=== PATIENT | female | born 1960 | race Caucasian/White ===

== ENCOUNTER 2021-01-08 12:00 | Outpatient (RCR) | payer BC, SELFPAY ==
--- NOTE | 2020-12-21 15:50 | HP.PTEVAL ---
Patient's Visit Information TISH GALO is a 60 year old F referred to Physical Therapy by Agapito Aburto PA-C with a diagnosis of Muscle strain L gastroc.. Date of Evaluation: 12/21/20 Physical Therapist: Mitch Canas, DONELLT, OCS, CSCS - Visit Plan Frequency: 3x /Week Duration: 4-6 Weeks Plan: 3x/week for 3-6 weeks for: 1. Ensure resting gastroc for infammatory phase. 2. rollout and stretch medial R gastroc. 3. Gradul progressive PRE for gastroc(pt to do rest of body herself or in gym as member). 4. Once full ROM and contraction without pain, phase in running, cutting, tennis specific ex including proper warm up. Ice as needed. 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 Was playing at [employer] sprinted up for ball at net and planted hard on L foot and felt like some one hit her in the calf with a board. Could not keep playing. Stopped and iced but then could not put weight through it. Hobbled to car wtih foot to the side. Ice and REST and better the third day but went to doctor. This occurred 5 days ago on 12/17/20. Comfortable at rest. Only hurts going on toes and stretching FW. Went to [facility] and wants her on crutches and will have MRI as he thinks there might be a partial tear. Sleep is OK. Keeps her from walking properly. Can't play tennis. R knee is sore lately also with overuse. Does some weight lifting and walks hill 3.5 miles per day. Does some 10# weight lifting squats, lunges. Hates stretching. Doesn't warm up alot. Basic ADLS are getting done. - Pain R calf. Pain Intensity (Out of 10): 0 Pain Intensity Range: 0, 5 Comment: 5 with walking up a ramp. - Objective L medial gastroc tender to touch medially moderately. Pt ambulates I slowly, tends to turn L foot out to avoid PF. Walks safe adn I. Steps turn sideways and uses L to ascend and descend onto heel. No functional PF. AROM full and slight pain end PF, slight tightness at 3 DF L. Simialr ROM side to side other park and funcitonal inv/ev. reflexes 2/3 patella adn achilles. Sensation LE WNL to gross light touch. strength PF painful L and 3+, inv/ev DF 4+ and without pain. L, 5/5 R. - gastroc squeeze test, achilles feels fine. - Goals Goal 1:: ST, full AROM L ankel without pain Goal Time Frame: 4-6 Weeks Goal 2:: Pt feel 95% better in overall activity and ready to attempt tennis again. Goal Time Frame: 4-6 Weeks Goal 3:: I approp stretches , strength adn w/u to avoid future problems. Goal Time Frame: 4-6 Weeks Goal 4:: LEFS 80/80 Goal Time Frame: 4-6 Weeks - Rehabilitation Potential Physical Therapy Diagnosis: L gastroc strain Rehabilitation Potential: Good - Anticipated Interventions Patient/Client Instruction: Educate patient on: Condition, Plan of Care For the Purpose of:: To decrease pain, To increase ROM, To improve muscle performance and motor function, To improve gait and locomotor functions Therapeutic Exercise to Include: Strength training, Flexibilty training, Gait and locomotor training, Passive ROM, Active ROM For the Purpose of:: To decrease pain, To decrease swelling/inflammation, To increase ROM, To improve muscle performance and motor function, To increase tolerance to activity/condition/position, To improve ability of physical actions for home/community/work/leisure Manual Therapy Techniques to Include: Soft tissue mobilization For the Purpose of:: To decrease swelling/inflammation, To increase ROM, To improve nutrient delivery to tissue Cryotherapy (ice pack, ice massage): Yes For the Purpose of:: To decrease pain, To decrease swelling/inflammation Thank you for the opportunity to evaluate your patient. For Medicare and Medicare HMO plans, please review the plan of care and approve it. It will need to be FAXED BACK to us at [phone] for Medicare purposes. For Medicare only, by signing this I certify the plan of care. Please let me know if there are questions or concerns regarding this plan of care. Physician Signature: Date:
--- NOTE | 2021-01-08 12:46 | HP.PTDCSUM ---
It has been my pleasure to treat TISH GALO referred by Agapito Aburto PA-C, with the diagnosis of Muscle strain L gastroc. for a total of 7 visit(s). Discharge Date: 01/08/21 Please see the following information for a summary of their discharge status. Subjective: Feel 100% but hasn't played tennis yet. Hopping not a problem. Stretching adn strengtheing at hoe and biking 8 miles per day and walking 2-5 miles per day. R calf. Pain Intensity (Out of 10): 0 % Improvement: 100 Objective/Function: Full and symmetrical aROM ankes, no tightness in L calf. 5/5 strcth L ankle. SLH without defiicts on L. Overall much better adn ready to start wean back to tennis. Goal 1:: ST, full AROM L ankel without pain Goal Progress: Goal Met Goal 2:: Pt feel 95% better in overall activity and ready to attempt tennis again. Goal Progress: Goal Met Goal 3:: I approp stretches , strength adn w/u to avoid future problems. Goal Progress: Goal Met Goal 4:: LEFS 80/80 Goal Progress: Goal Met Plan: d/c Discharge Comments: continue home strength adn stretch adn slow wean back to tennis. If there are questions or concerns regarding this patient's physical therapy, please feel free to call me at [phone]. Thank you for the referral of this patient. Sincerely, Mitch Canas, DPT, OCS, CSCS Balance/Gait/Functional tests - Balance/Special Test Scores Lower Extremity Functional Score: 80
== END 2021-01-08 19:00 | disposition home or self-care (01) ==
LOC: PT 12:00
PROVIDERS: Referring Provider Physician Assistant; Visit Provider Physician Assistant
DX: S86.212A Strain of muscle(s) and tendon(s) of anterior muscle group at lower leg level, left leg, initial encounter (principal)
CPT/HCPCS: 97110; 97161; 97164

== ENCOUNTER 2024-10-02 09:38 | Inpatient (IN) | payer OTHER, SELFPAY ==
[2024-10-02] VITALS (7 sets, daily range): BP systolic 129–176; BP diastolic 68–99; PULSE 71–105; RESP 14–18; TEMP 36.7–37.2; O2SAT 95–99; BMI 27.2; BMI 26.7
--- NOTE | 2024-10-02 09:55 | EDS_ITS ---
HPI HPI - GI History of Present Illness Chief Complaint: Abd Pain Detail of Chief Complaint: Abdominal pain Informant: patient Narrative Narrative: Patient presents the emergency department with complaint of not feeling well and abdominal pain. Patient states that 5 days ago started feeling just feverish and achy. She noticed that her urine was dark. She denies dysuria or urgency. She started drinking more water and the urine cleared up as far as color but when she went back to drinking normal amounts of water it got dark again. Today she was seen at an urgent care and noted to have pain in the lower abdomen especially left lower quadrant and was referred to the emergency department. Patient denies any diarrhea. She has had subjective fever and chills at home. Patient has no medical history. No prior abdominal surgeries. No history of diverticulitis. No family history of colon cancer or inflammatory bowel disease. [facility] Medical History (Updated 10/02/24 @ 10:[address] Benja Catherine, DO) Strain of muscle and tendon of long extensor muscle of toe at ankle and foot level, left foot, subsequent encounter Home Medications ?Medication ?Instructions ?Recorded ?Last Taken ?Type NK 10/02/24 Unknown History Allergy/AdvReac Type Severity Reaction Status Date / Time No Known Allergies Allergy Verified 10/02/24 09:39 Social History (Updated 10/02/24 @ 10:17 by Emily Rosales) household members: spouse housing: house current occupational status: unemployed Smoking Status: Never smoker alcohol intake: current details: social substance use type: does not use ROS ROS ED Review of Systems ROS Unobtainable: other Constitutional Constitutional ED: Reports lethargy; Denies chills, fever(s), sweats or weight loss Eyes Eyes: Denies blurry vision, change in vision or diplopia ENT ENT ED: Denies rhinorrhea or sore throat Cardiovascular Cardiovascular: Denies chest pain, orthopnea or racing heartbeat Respiratory/Chest Respiratory/Chest: Denies cough, dyspnea, dyspnea on exertion, orthopnea or sputum Gastrointestinal Gastrointestinal: Reports abdominal pain; Denies diarrhea, nausea or vomiting Genitourinary Genitourinary ED: Denies dysuria, hematuria or urinary frequency Musculoskeletal Musculoskeletal: Denies arthralgias, back pain, myalgias or neck pain Integumentary Denies abscess, Abrasions or rash Neurologic Neurologic: Denies headache(s) or weakness Psychiatric Psychiatric: Denies anxiety, depression or suicidal thoughts Endocrine Endocrinology: Denies polydipsia, polyphagia or polyuria Hematologic/Lymphatic Hematologic/Lymphatic: Denies easy bleeding, easy bruising or lymphadenopathy Allergic/Immunologic Allergic/Immunologic ED: Denies mouth swelling, tongue swelling or urticaria EXAM Physical Exam Const Vital Signs: 10/02/24 09:39 Temperature 98.9 F Temperature Source Oral Pulse Rate 105 H Respiratory Rate 18 Blood Pressure 176/99 H Blood Pressure Mean 124 Pulse Ox 99 Oxygen Delivery Method Room Air Positive well nourished and well developed General Appearance ED: well developed and NAD HEENT Reports TM's clear and moist mucous membranes normocephalic and atraumatic; Negative for trauma or tenderness Tympanic Membrane ED: Yes TM's clear Eyes PERRL and EOMs intact bilaterally General Eye ED: Negative for pale conjunctiva or scleral icterus Neck no lymphadenopathy, supple and no JVD General: Negative for tenderness Chest Wall inspection of chest normal and palpation of chest normal Chest: Negative for tenderness Resp normal respiratory effort and clear to auscultation bilaterally Effort and Inspection: Negative for respiratory distress or pain with movement Auscultation: Negative for rhonchi, wheezes or diminished lung sounds Cardio regular rate, regular rhythm, S1 normal heart sound, S2 normal heart sound and no murmurs Peripheral Pulses: pulses 2+ throughout GI normal to inspection, nondistended, normoactive bowel sounds, soft to palpation, non-distended and no masses GI Narrative: Normoactive bowel sounds. She has diffuse tenderness palpation over the right lower quadrant as well as suprapubic region and left lower quadrant. There are some guarding. There is no rebound, rigidity, or peritoneal signs. No masses palpated. Back/Spine no CVA tenderness and no thoracic nor lumbar tenderness Extremity normal to inspection General Extremety ED: Negative for edema General Extremity: Negative for edema Neuro oriented x3, CN's II-XII intact bilaterally, no sensory deficits noted and gait normal Sensorium / Orientation: awake, alert, oriented to person, oriented to place and oriented to time Motor Exam: strength 5/5 throughout and strength abnormal Psych mental status grossly normal Skin no rashes or lesions noted and no wounds MDM MDM MDM Narrative Medical decision making narrative: Patient presents with subjective fever and lower abdomen pain. In the differential would be UTI versus appendicitis or diverticulitis or other acute intra-abdominal process. She does not anything for pain. IV line will be established. Will obtain labs as well as a CT scan of the abdomen pelvis with IV contrast to evaluate further. Will obtain a urinalysis. CBC with differential white count 9.8 with hemoglobin 14 and platelet count of 321. 75% neutrophils. CT scan of the abdomen pelvis shows acute diverticulitis of the sigmoid colon with developing abscess. Patient was started on Cipro and Flagyl IV. Chemistries pending. Urinalysis pending. I did discuss case with general surgeon on-call Dr. Bardales who will evaluate patient in the emergency department for admission and definitive care. Lactate came back normal at 1.4 and chemistries were unremarkable. Lab Data Attestation: I reviewed the patient's lab results. Labs: Laboratory Results - last 24 hr 10/02/24 10:12 WBC 9.8 RBC 4.66 Hgb 14.2 Hct 42.5 MCV 91.2 MCH 30.5 MCHC 33.4 RDW Std Deviation 42.5 RDW Coeff of Florian 12.7 Plt Count 321 MPV 8.9 Immature Gran % (Auto) 0.400 Neut % (Auto) 75.6 H Lymph % (Auto) 13.3 L [place] % (Auto) 10.1 H Eos % (Auto) 0.1 Baso % (Auto) 0.5 Absolute Neuts (auto) 7.4 Absolute Lymphs (auto) 1.30 Nucleated RBC % 0 Sodium 134 Potassium 4.3 Chloride 98 Carbon Dioxide 22.1 Anion Gap 14 BUN 11 Creatinine 0.77 Estim Creat Clear Calc 85.27 Est GFR (MDRD) Non-Af 87 BUN/Creatinine Ratio 14.4 Glucose 135 H Lactic Acid 1.4 Calcium 9.6 Radiography Diagnostic Testing: Clinical Impression(s) from Imaging Studies Abdomen/Pelvis CT 10/02/24 10:18 IMPRESSION: 1. Acute diverticulitis of the sigmoid colon with intra-abdominal abscess formation. No perforation. Dr. Acosta discussed these findings with Dr. Catherine via telephone at 10:41 am on 10/02/24. Reading Location: [facility] Discharge Plan Dx/Rx/DC Orders Clinical Impression: Abdominal pain, Acute diverticulitis Disposition Disposition: [facility]
--- NOTE | 2024-10-02 10:18 | CT_ITS ---
PROCEDURE: ABDOMEN/PELVIS W IV CONT ONLY 10/02/2024 REASON FOR EXAM: LOWER ABDOMINAL PAIN TECHNIQUE: Abdomen and pelvis CT with intravenous contrast. Coronal and Sagittal reconstruction series were provided. PATIENT PREPARATION: Per protocol ORAL CONTRAST TYPE: None. CONTRAST: Isovue 370 VOLUME: 100 mL One or more dose reduction techniques were used (e.g., Automated exposure control, adjustment of the mA and/or kV according to patient size, use of iterative reconstruction technique. RADIATION DOSE SUMMARY: CTDlvol: 25 mGy DLP: 800 mGycm COMPARISON: None FINDINGS: Lung bases: Bibasilar atelectasis/scarring. The heart is normal in size. Liver: The liver is normal in size without focal hepatic mass. The major portal veins are patent. No biliary ductal dilation. Gallbladder: No radiopaque stones within the gallbladder. Spleen: Normal-size. Pancreas: Unremarkable. Adrenals: No adrenal mass. Kidneys: No hydronephrosis or nephrolithiasis. Bladder: Mildly distended and unremarkable. Reproductive Organs: Normal uterine size and contour. Ovaries are unremarkable. Bowel: The bowel loops are nondilated. Diverticulitis within the distal sigmoid colon (coronal image 42) with intra-abdominal abscess measuring approximately 3.3 x 2.0 cm. Adjacent fat stranding and edema. Moderate distal colonic diverticulosis. No ascites or free air. No inflammatory mass in the expected region of the appendix. Lymph nodes: No suspicious lymphadenopathy. Vasculature: Minimal calcification of the aortoiliac vessels. Bones/soft tissues: Small fat containing umbilical hernia. Thoracolumbar spondylosis with degenerative disc disease at L4-5. CT/Abdomen/Pelvis W IV Cont ONLY IMPRESSION: 1. Acute diverticulitis of the sigmoid colon with intra-abdominal abscess forma tion. No perforation. Dr. Acosta discussed these findings with Dr. Catherine via telephone at 10:41 am on 10/02/24. Reading Location: [id number]
[2024-10-02 10:26] LABS: Absolute Neutrophil Count 7.4 X10^3/uL (2.0-7.7); Basophil# 0.05 X10^3/uL; Basophil% 0.5 % (0-1); Eosinophil# 0.01 X10^3/uL; Eosinophils% 0.1 % (0-5); Hematocrit 42.5 % (37-47); Hemoglobin 14.2 g/dL (12.0-15.0); Lymphocyte % 13.3 % (19-41); Mean Corp Hgb Conc 33.4 g/dL (32-36); Mean Corpuscular Hgb 30.5 pg (27.0-32.0); Mean Corpuscular Volume 91.2 fL (81-99); Mean Platelet Vol. 8.9 fl (6.2-12.0); Monocyte# 0.99 X10^3/uL; Monocyte% 10.1 % (0-10); NRBC Flagged by Analyzer 0 % (0-5); Neutrophil # 7.37 X10^3/uL (2.7-7.7); Neutrophil % 75.6 % (47-70); Platelet Count 321 K/mm3 (150-450); RBC Distribution Width CV 12.7 % (11.6-14.6); RBC Distribution Width SD 42.5 fl (35.1-43.9); Red Blood Count 4.66 M/mm3 (4.2-5.4); White Blood Count 9.8 K/mm3 (4.4-11.0)
[2024-10-02 10:54] LABS: Lactic Acid 1.4 mmol/L (0.0-2.0)
[2024-10-02 10:56] LABS: Anion Gap 14 (5-15); BUN 11 mg/dL (4-19); BUN/Creat Ratio 14.4 RATIO (10-20); Calcium,Total 9.6 mg/dL (7.6-11.0); Carbon Dioxide 22.1 mmol/L (21.0-32.0); Chloride 98 mmol/L (98-108); Creatinine, Serum 0.77 mg/dL (0.70-1.20); EST Glomerular Filtration Rate 87 (>60); Estimated Creatinine Clearance 85.27 ml/min (50-250); Glucose 135 mg/dL (70-99); Potassium 4.3 mmol/L (3.3-5.1); Sodium Level 134 mmol/L (133-145)
[2024-10-02] MEDS: Ciprofloxacin 400 MG/200 ML BAG 200 MG IV (11:06)
[2024-10-02 11:08] LABS: Bacteria 0 SEEN /hpf (None Seen); Mucous, Urine 0 SEEN /hpf (<or=2+); Red Blood Cells-Urine 0 SEEN /hpf (0-5); White Blood Cells 0 SEEN /hpf (0-5)
[2024-10-02 11:13] LABS: Color, Urine Yellow (Yellow); Glucose, Dipstick Normal (Normal); Ketone-Dipstick 15 mg/dl (Negative); Leukocyte Esterase-Dipstick Negative /ul (Negative); Nitrite-Dipstick Negative (Negative); Occult Blood-Urine Negative /ul (Negative); Urine Bilirubin Dipstick Negative (Negative); Urine Clarity Clear (Clear); Urine Urobilinogen Normal (Normal)
[2024-10-02 11:45] LABS: Squamous Epithelial Cells - UA 0-5 SEEN /hpf (5-10)
[2024-10-02 11:51] LABS: Protein, Urine (Random) 9.3 mg/dL (0.0-12.0)
[2024-10-02] MEDS: metroNIDAZOLE 500 MG/100 ML BAG 100 MG IV (12:11)
--- NOTE | 2024-10-02 12:47 | PCM.HP.STD ---
HPI - General General Date of Admission: 10/02/24 Date of Service: 10/02/24 Chief Complaint: Left lower abdominal pain HPI Narrative TISH GALO, is a 64 F who presents with worsening lower abdominal/left lower quadrant pain. Patient notes she returned from [place] last and felt as though she was jet lagged from traveling. She notes over the next few days she developed nausea, achiness and overall feeling like she had the flu. She notes lack of appetite, however she has been on a keto diet for the last several weeks and her appetite has changed. She denies any change in her bowel habits recently. She notes darker urine recently. She went to urgent care as she thought she may have a urinary tract infection. She notes they had palpated the left lower quadrant and noted she was very tender and recommended she come to the ED. Patient denies any previous diverticulitis episodes. She denies having a previous colonoscopy. She denies family history of colon cancer. She denies any previous abdominal surgeries. She denies any cardiac or pulmonary history. She denies taking any routine medications. CT scan of the ab/pel demonstrated acute diverticulitis within the distal sigmoid colon with intra-abdominal abscess measuring 3.3 x 2.0 cm. Adjacent fat stranding and edema. WBC 9.8, Hgb 14.2, Hct 42.5, Plt 321 PFSH Medical History (Updated 10/02/24 @ 10:[address] Benja Catherine, DO) Strain of muscle and tendon of long extensor muscle of toe at ankle and foot level, left foot, subsequent encounter Home Medications ?Medication ?Instructions ?Recorded ?Last Taken ?Type NK 10/02/24 Unknown History Allergy/AdvReac Type Severity Reaction Status Date / Time No Known Allergies Allergy Verified 10/02/24 09:39 Social History (Updated 10/02/24 @ 10:17 by Emily Rosales) household members: spouse housing: house current occupational status: unemployed Smoking Status: Never smoker alcohol intake: current details: social substance use type: does not use ROS Constitutional Constitutional: Reports systems reviewed and no addt'l complaints, except as documented Eyes Eyes: Reports systems reviewed and no addt'l complaints, except as documented ENT HEENT: Reports systems reviewed and no addt'l complaints, except as documented Cardiovascular Cardiovascular: Reports systems reviewed and no addt'l complaints, except as documented Respiratory/Chest Respiratory/Chest: Reports systems reviewed and no addt'l complaints, except as documented Gastrointestinal Gastrointestinal: Reports systems reviewed and no addt'l complaints, except as documented Genitourinary Genitourinary: Reports systems reviewed and no addt'l complaints, except as documented Musculoskeletal Musculoskeletal: Reports systems reviewed and no addt'l complaints, except as documented Integumentary Integumentary: Reports systems reviewed and no addt'l complaints, except as documented Neurologic Neurologic: Reports systems reviewed and no addt'l complaints, except as documented Psychiatric Psychiatric: Reports systems reviewed and no addt'l complaints, except as documented Endocrine Endocrinology: Reports systems reviewed and no addt'l complaints, except as documented Hematologic/Lymphatic Hematologic/Lymphatic: Reports systems reviewed and no addt'l complaints, except as documented Allergic/Immunologic Allergic/Immunologic: Reports systems reviewed and no addt'l complaints, except as documented Vital Signs Vital Signs Vital Signs: 10/02/24 09:39 10/02/24 11:08 10/02/24 12:00 Temperature 98.9 F 98.5 F 98.1 F Temperature Source Oral Oral Oral Pulse Rate 105 H 77 71 Respiratory Rate 18 14 15 Blood Pressure 176/99 H 140/89 H 139/81 H Blood Pressure Mean 124 106 100 Pulse Ox 99 99 98 Oxygen Delivery Method Room Air Room Air Room Air 10/02/24 12:16 Temperature 98.1 F Temperature Source Pulse Rate 71 Respiratory Rate 15 Blood Pressure 139/81 H Blood Pressure Mean 100 Pulse Ox 98 Oxygen Delivery Method Weight Weight: 184 lb 6.4 oz Body Mass Index (BMI) 27.2 Physical Exam Const alert, oriented x3 and no apparent distress HEENT normocephalic and head/scalp atraumatic Eyes PERRL Neck full ROM Resp normal respiratory effort and clear to auscultation bilaterally Cardio regular rate and regular rhythm GI GI Narrative: Abdomen- soft, tenderness in the left lower quadrant. Hypoactive bowel sounds. no CVA tenderness Back/Spine no CVA tenderness Extremity normal to inspection Skin no rashes or lesions noted Neuro no focal motor deficits and no sensory deficits noted Psych mental status grossly normal, thought process normal, cooperative, speech normal and activity/motor behavior normal Results Lab / Micro Data 10/02/24 10:12 10/02/24 10:12 Labs: Laboratory Results - last 24 hr 10/02/24 10:12: WBC 9.8, RBC 4.66, Hgb 14.2, Hct 42.5, MCV 91.2, MCH 30.5, MCHC 33.4, RDW Std Deviation 42.5, RDW Coeff of Florian 12.7, Plt Count 321, MPV 8.9, Immature Gran % (Auto) 0.400, Neut % (Auto) 75.6 H, Lymph % (Auto) 13.3 L, [place] % (Auto) 10.1 H, Eos % (Auto) 0.1, Baso % (Auto) 0.5, Absolute Neuts (auto) 7.4, Absolute Lymphs (auto) 1.30, Nucleated RBC % 0, Sodium 134, Potassium 4.3, Chloride 98, Carbon Dioxide 22.1, Anion Gap 14, BUN 11, Creatinine 0.77, Estim Creat Clear Calc 85.27, Est GFR (MDRD) Non-Af 87, BUN/Creatinine Ratio 14.4, Glucose 135 H, Lactic Acid 1.4, Calcium 9.6 10/02/24 10:56: Urine Color Yellow, Urine Clarity Clear, Urine pH 6.0, Ur Specific [place] 1.010, Urine Protein TNP, Urine Glucose (UA) Normal, Urine Ketones 15 H, Urine Occult Blood Negative, Urine Nitrite Negative, Urine Bilirubin Negative, Urine Urobilinogen Normal, Ur Leukocyte Esterase Negative, Urine RBC 0 SEEN, Urine WBC 0 SEEN, Ur Squamous Epith Cells 0-5 SEEN, Urine Bacteria 0 SEEN, Urine Mucus 0 SEEN, U Random Total Protein 9.3 Imaging Radiology Impression Abdomen/Pelvis CT 10/02/24 10:18 IMPRESSION: 1. Acute diverticulitis of the sigmoid colon with intra-abdominal abscess formation. No perforation. Dr. Acosta discussed these findings with Dr. Catherine via telephone at 10:41 am on 10/02/24. Reading Location: [id number] Assessment & Plan Assessment/Plan (1) Acute diverticulitis: (2) Abdominal pain: PLAN: Plan I am seeing this patient in conjunction with Dr. Bardales. He has independently evaluated this patient. Patient is a 64 y/o F who presented with a 5 day history of overall not feeling well associated with abdominal pain. CT scan of the abdomen/pelvis demonstrated perforated sigmoid diverticulitis with abscess formation. Patient does not have an acute surgical abdomen. The location of the abscess is in an area that can not be drained. Plan will be to admit the patient to the floor inpatient for IV antibiotics, bowel rest and observation. It was discussed with the patient that over the next 24 hours, she will be NPO followed by initiating a clear liquid diet. Once patient's abdominal pain is well controlled, plan will be to discharged patient to home on oral antibiotics. If patient fails conservative measures, we will discuss surgical intervention. Patient has had the opportunity to ask and have questions answered. Patient verbally understands and agrees with the plan. Thank you for allowing us to participate in this patient's care. Charges/Coding Visit Charges Inpatient E&M: 84401 Init Hosp L2
[2024-10-02] MEDS: 0.9% Normal Saline (1000mL) 1,000 ML 100 ML IV ×2 (13:41→23:41)
[2024-10-02] MEDS: Acetaminophen 325 MG Tablet 650 MG PO (20:30)
[2024-10-02] MEDS: Piperacil/Tazobactam 3.375 GM in 0.9% Normal Saline (50mL MB+) 50 ML IV (21:04)
[2024-10-03] VITALS (7 sets, daily range): BP systolic 113–135; BP diastolic 63–74; PULSE 83–94; RESP 16–18; TEMP 36.3–37.6; O2SAT 93–97
[2024-10-03] MEDS: Piperacil/Tazobactam 3.375 GM in 0.9% Normal Saline (50mL MB+) 50 ML IV ×3 (06:10→22:19)
[2024-10-03 07:44] LABS: Absolute Lymphocyte Count 1.31 X10^3/uL (0.83-4.51); Absolute Neutrophil Count 7.3 X10^3/uL (2.0-7.7); Basophil# 0.04 X10^3/uL; Basophil% 0.4 % (0-1); Eosinophil# 0.03 X10^3/uL; Eosinophils% 0.3 % (0-5); Hemoglobin 13.8 g/dL (12.0-15.0); Lymphocyte # 1.31 X10^3/ul (0.83-4.51); Lymphocyte % 13.3 % (19-41); Mean Corp Hgb Conc 33.7 g/dL (32-36); Mean Corpuscular Hgb 30.5 pg (27.0-32.0); Mean Corpuscular Volume 90.7 fL (81-99); Mean Platelet Vol. 9.1 fl (6.2-12.0); Monocyte# 1.07 X10^3/uL; Monocyte% 10.9 % (0-10); NRBC Flagged by Analyzer 0 % (0-5); Neutrophil # 7.32 X10^3/uL (2.7-7.7); Neutrophil % 74.5 % (47-70); Platelet Count 351 K/mm3 (150-450); RBC Distribution Width CV 12.8 % (11.6-14.6); RBC Distribution Width SD 42.4 fl (35.1-43.9); Red Blood Count 4.52 M/mm3 (4.2-5.4); White Blood Count 9.8 K/mm3 (4.4-11.0)
--- NOTE | 2024-10-03 08:07 | PN.SURG_ITS ---
Subjective Subjective Patient evaluated sitting comfortably in the chair. She notes crampy discomfort in the lower abdomen. She denies any nausea, vomiting, fever. She notes having a headache. She states she is starting to feel hungry. Objective Data Objective Data Vital Signs: Vital Signs Temp Pulse Resp BP Pulse Ox O2 Del Method 98 F 84 16 135/73 H 93 Room Air 10/03/24 03:46 10/03/24 03:46 10/03/24 03:46 10/03/24 03:46 10/03/24 07:21 10/03/24 08:03 Oxygen Delivery Method Room Air Weight: 180 lb 15.992 oz Body Mass Index (BMI) 26.7 Intake & Output: Intake and Output for Last 24 Hours 10/01/24 10/02/24 10/03/24 23:59 23:59 23:59 Intake Total 1300 / 1300 50 / 50 Balance 1300 / 1300 50 / 50 Lab / Micro Data 10/03/24 06:47 10/03/24 06:47 Labs: Laboratory Results - last 24 hr 10/02/24 10:12: WBC 9.8, RBC 4.66, Hgb 14.2, Hct 42.5, MCV 91.2, MCH 30.5, MCHC 33.4, RDW Std Deviation 42.5, RDW Coeff of Florian 12.7, Plt Count 321, MPV 8.9, Immature Gran % (Auto) 0.400, Neut % (Auto) 75.6 H, Lymph % (Auto) 13.3 L, [place] % (Auto) 10.1 H, Eos % (Auto) 0.1, Baso % (Auto) 0.5, Absolute Neuts (auto) 7.4, Absolute Lymphs (auto) 1.30, Nucleated RBC % 0, Sodium 134, Potassium 4.3, Chloride 98, Carbon Dioxide 22.1, Anion Gap 14, BUN 11, Creatinine 0.77, Estim Creat Clear Calc 85.27, Est GFR (MDRD) Non-Af 87, BUN/Creatinine Ratio 14.4, G lucose 135 H, Lactic Acid 1.4, Calcium 9.6 10/02/24 10:56: Urine Color Yellow, Urine Clarity Clear, Urine pH 6.0, Ur Specific [place] 1.010, Urine Protein TNP, Urine Glucose (UA) Normal, Urine Ketones 15 H, Urine Occult Blood Negative, Urine Nitrite Negative, Urine Bilirubin Negative, Urine Urobilinogen Normal, Ur Leukocyte Esterase Negative, Urine RBC 0 SEEN, Urine WBC 0 SEEN, Ur Squamous Epith Cells 0-5 SEEN, Urine Bacteria 0 SEEN, Urine Mucus 0 SEEN, U Random Total Protein 9.3 10/03/24 06:47: WBC 9.8, RBC 4.52, Hgb 13.8, Hct 41.0, MCV 90.7, MCH 30.5, MCHC 33.7, RDW Std Deviation 42.4, RDW Coeff of Florian 12.8, Plt Count 351, MPV 9.1, Immature Gran % (Auto) 0.600, Neut % (Auto) 74.5 H, Lymph % (Auto) 13.3 L, [place] % (Auto) 10.9 H, Eos % (Auto) 0.3, Baso % (Auto) 0.4, Absolute Neuts (auto) 7.3, Absolute Lymphs (auto) 1.31, Nucleated RBC % 0 Radiography Diagnostic Testing: Radiology Impression Abdomen/Pelvis CT 10/02/24 10:18 IMPRESSION: 1. Acute diverticulitis of the sigmoid colon with intra-abdominal abscess formation. No perforation. Dr. Acosta discussed these findings with Dr. Catherine via telephone at 10:41 am on 10/02/24. Reading Location: [facility] Physical Exam GI GI Narrative: Abdomen- soft, tenderness in the lower pelvic/left lower quadrant. Assessment & Plan Assessment/Plan (1) Acute diverticulitis: PLAN: I am following this patient in conjunction with Dr. Bardales. He has independently evaluated this patient. Labs reviewed. Increase diet to clears Continue IV antibiotics may switch over to oral antibiotics once full liquids are started Encourage ambulating in the hallways and I.S. May increase diet at lunch time to full liquids pending patient's abdominal symptoms No surgical intervention planned at this time We will continue to monitor this patient. Charges/Coding Visit Charges Inpatient E&M: 25849 Subs Hosp L2
[2024-10-03 08:08] LABS: Anion Gap 12 (5-15); BUN 8 mg/dL (4-19); BUN/Creat Ratio 11.3 RATIO (10-20); Calcium,Total 8.7 mg/dL (7.6-11.0); Carbon Dioxide 23.2 mmol/L (21.0-32.0); Chloride 101 mmol/L (98-108); Creatinine, Serum 0.71 mg/dL (0.70-1.20); EST Glomerular Filtration Rate 96 (>60); Estimated Creatinine Clearance 91.69 ml/min (50-250); Glucose 103 mg/dL (70-99); Magnesium 2.1 mg/dL (1.5-2.2); Phosphorus 2.9 mg/dL (2.7-4.5); Potassium 4.2 mmol/L (3.3-5.1); Sodium Level 136 mmol/L (133-145)
[2024-10-03] MEDS: Acetaminophen 325 MG Tablet 650 MG PO ×2 (08:09→16:03)
--- NOTE | 2024-10-03 13:09 | CASEMGMT ---
DESI CAO Assessment Face to Face with patient for initial transition planning/care coordination assessment. DESI CAO introduced self and role at [facility], pt voices understanding. Pt is A&Ox4 and is resting comfortably in bed and is calm. Care providers, pharmacy, and demographics verified. Admitting dx: Diverticulitis LACE Strata: 1 PCP: Didi Specialists: Denies Preferred Pharmacy: [facility] Insurance: U[employer] DG Prescription Benefit: Yes LNOK: [place] (H) Living Arrangements: Pt lives with her in a 2 story home with 1 step to enter ADLs/IADLs: Ind. Pt states that she plays Tennis every week Transportation: Self, DME: [employer]. Denies further uses or needs HHC/SNF: Denies hx or needs Pt?s goal: Home Plan: Home, no additional needs anticipated. 6-Click score is 24. Pt states that she feels safe returning home with her once she is medically ready and denies further DC needs. Per chart review, plan is to DC the pt once her ABD pain is controlled. Pt was advanced to a Clear Liquid diet. Pt states that her pain is currently 2 or 3/10. Pt denies further questions or concerns at this time. Report given to CONTENT STRATEGY LEAD CM. Candice Argueta RN, CM
[2024-10-03] MEDS: 0.9% Saline Lock 10 ML Syringe IV (13:29)
[2024-10-04] MEDS: Piperacil/Tazobactam 3.375 GM in 0.9% Normal Saline (50mL MB+) 50 ML IV (05:13)
[2024-10-04 05:18] VITALS: BP 109/60; PULSE 76; RESP 15; TEMP 36.2; O2SAT 93
[2024-10-04 07:00] LABS: Absolute Lymphocyte Count 0.97 X10^3/uL (0.83-4.51); Absolute Neutrophil Count 6.8 X10^3/uL (2.0-7.7); Basophil# 0.05 X10^3/uL; Basophil% 0.6 % (0-1); Eosinophil# 0.04 X10^3/uL; Eosinophils% 0.5 % (0-5); Hematocrit 37.4 % (37-47); Hemoglobin 12.9 g/dL (12.0-15.0); Lymphocyte # 0.97 X10^3/ul (0.83-4.51); Mean Corp Hgb Conc 34.5 g/dL (32-36); Mean Corpuscular Hgb 30.8 pg (27.0-32.0); Mean Corpuscular Volume 89.3 fL (81-99); Mean Platelet Vol. 8.7 fl (6.2-12.0); Monocyte# 0.94 X10^3/uL; Monocyte% 10.6 % (0-10); NRBC Flagged by Analyzer 0 % (0-5); Neutrophil # 6.81 X10^3/uL (2.7-7.7); Platelet Count 316 K/mm3 (150-450); RBC Distribution Width CV 12.6 % (11.6-14.6); RBC Distribution Width SD 41.2 fl (35.1-43.9); Red Blood Count 4.19 M/mm3 (4.2-5.4); White Blood Count 8.8 K/mm3 (4.4-11.0)
--- NOTE | 2024-10-04 07:27 | PN.SURG_ITS ---
Subjective Subjective Patient tolerated full liquids, denies any need for pain meds and minimal discomfort Objective Data Objective Data Vital Signs: Vital Signs Temp Pulse Resp BP Pulse Ox O2 Del Method 97.2 F L 76 15 109/60 93 Room Air 10/04/24 05:18 10/04/24 05:18 10/04/24 05:18 10/04/24 05:18 10/04/24 05:18 10/04/24 05:18 Oxygen Delivery Method Room Air Weight: 180 lb 15.992 oz Body Mass Index (BMI) 26.7 Intake & Output: Intake and Output for Last 24 Hours 10/02/24 10/03/24 10/04/24 23:59 23:59 23:59 Intake Total 1300 / 1300 1989 50 / 50 Balance 1300 / 1300 1989 50 50 Lab / Micro Data 10/04/24 06:30 10/04/24 06:30 Labs: Laboratory Results - last 24 hr 10/03/24 06:47: WBC 9.8, RBC 4.52, Hgb 13.8, Hct 41.0, MCV 90.7, MCH 30.5, MCHC 33.7, RDW Std Deviation 42.4, RDW Coeff of Florian 12.8, Plt Count 351, MPV 9.1, Immature Gran % (Auto) 0.600, Neut % (Auto) 74.5 H, Lymph % (Auto) 13.3 L, [place]bert % (Auto) 10.9 H, Eos % (Auto) 0.3, Baso % (Auto) 0.4, Absolute Neuts (auto) 7.3, Absolute Lymphs (auto) 1.31, Nucleated RBC % 0, Sodium 136, Potassium 4.2, Chloride 101, Carbon Dioxide 23.2, Anion Gap 12, BUN 8, Creatinine 0.71, Estim Creat Clear Calc 91.69, Est GFR (MDRD) Non-Af 96, BUN/Creatinine Ratio 11.3, G lucose 103 H, Calcium 8.7, Phosphorus 2.9, Magnesium 2.1 10/04/24 06:30: WBC 8.8, RBC 4.19 L, Hgb 12.9, Hct 37.4, MCV 89.3, MCH 30.8, MCHC 34.5, RDW Std Deviation 41.2, RDW Coeff of Florian 12.6, Plt Count 316, MPV 8.7, Immature Gran % (Auto) 0.300, Neut % (Auto) 77.0 H, Lymph % (Auto) 11.0 L, Colbert % (Auto) 10.6 H, Eos % (Auto) 0.5, Baso % (Auto) 0.6, Absolute Neuts (auto) 6.8, Absolute Lymphs (auto) 0.97, Nucleated RBC % 0 Physical Exam GI GI Narrative: Abdomen- soft, minimal tenderness in the lower pelvic/left lower quadrant. Inspection: Negative for abdominal distention Assessment & Plan Assessment/Plan (1) Acute diverticulitis: PLAN: White blood count normal at 8.8 Increase diet to transitional?if tolerates likely DC later with follow-up in 1 week Continue IV antibiotics, will DC with p.o. antibiotics No surgical intervention planned at this time Isaura Scott M.D. Pager: [phone] [facility] [address] [place] [address], [facility], [address] [place] [address] Office: [phone] Charges/Coding Visit Charges Inpatient E&M: 27587 Disch Hosp
--- NOTE | 2024-10-04 07:31 | DCINST_ITS ---
Discharge Instructions Diet Discharge Diet: - (Transitional diet/low fiber) Activity Discharge Activity: Return to Normal Activity Follow Up Care Please Follow Up With: Cali Bardales MD When: Call the office [phone] for a follow-up appointment 1 week. Concerns or questions after 4:30 PM and on the weekends call [phone] Test Results: Test results from this visit will be discussed in further detail at your follow- up appointment, if applicable. Discharge Plan Admission Admit Date/Time: 10/02/24 11:32 Attending Provider: Cali Bardales Primary Care Provider: Miryam Tolbert Discharge Orders/Prescriptions Prescriptions: New amoxicillin-pot clavulanate 875-125 mg tablet 1 tab PO BID Qty: 20 0RF Referrals / Follow Up: Miryam Tolbert NP-C [Primary Care Provider] - Disposition Disposition (needs filled in before D/C Order can be placed): Home, Self Care
--- NOTE | 2024-10-04 07:34 | DS.PCM_ITS ---
Providers Date of Admission: 10/02/24 Date of Discharge: 10/04/24 Primary Care Physician: Miryam Tolbert, COMPLIANCE TESTING ANALYST-C Reason For Visit: ACUTE PERFORATED DIVERTICULITIS W/ ABSCESS Diagnosis Discharge Diagnosis (1) Acute diverticulitis: Status: Acute Code(s): K57.92 - Diverticulitis of intestine, part unspecified, without perforation or abscess without bleeding Plan: White blood count normal at 8.8 Increase diet to transitional?if tolerates likely DC later with follow-up in 1 week Continue IV antibiotics, will DC with p.o. antibiotics No surgical intervention planned at this time Isaura Scott M.D. Pager: [phone] [facility] [address] [place] [address], Outpatient [place], [address] [place] [address] Office: [phone] Medications at Discharge Home Medications amoxicillin 875 mg-potassium clavulanate 125 mg tablet 1 tab PO BID #20 tabs 10/04/24 Hospital Course Operations None Procedures None Summary of Care Provided Minutes Spent on Discharge: 15 Hospital Course: Patient presented to the ER due to abdominal pain CT abdomen pelvis did show acute diverticulitis of sigmoid colon with intra-abdominal abscess formation at 3.3 x 2 cm. Patient was initially kept n.p.o. with IV Zosyn and treated conservatively. Once pain improved patient was able to have diet advanced which she tolerated without increased pain. Patient was sent home with Augmentin 875 p.o. twice daily x 10 days. Weight / BMI Weight Weight: 180 lb 15.992 oz Body Mass Index (BMI) 26.7 ABG / Lab / Microbiology Data 10/04/24 06:30 10/04/24 06:30 Laboratory: Laboratory Results - last 24 hr 10/04/24 06:30: WBC 8.8, RBC 4.19 L, Hgb 12.9, Hct 37.4, MCV 89.3, MCH 30.8, MCHC 34.5, RDW Std Deviation 41.2, RDW Coeff of Florian 12.6, Plt Count 316, MPV 8.7, Immature Gran % (Auto) 0.300, Neut % (Auto) 77.0 H, Lymph % (Auto) 11.0 L, [place] % (Auto) 10.6 H, Eos % (Auto) 0.5, Baso % (Auto) 0.6, Absolute Neuts (auto) 6.8, Absolute Lymphs (auto) 0.97, Nucleated RBC % 0, Sodium 136, Potassium 3.9, Chloride 101, Carbon Dioxide 22.9, Anion Gap 12, BUN 5, Creatinine 0.75, Estim Creat Clear Calc 86.80, Est GFR (MDRD) Non-Af 89, BUN/Creatinine Ratio 6.8 L, G lucose 102 H, Calcium 8.2 D/C Instructions Discharge Diet: - (Transitional diet/low fiber) DC O2, CPAP, BIPAP Needs Home O2 Discharge instructions: No Please Follow Up With: Cali Bardales MD When: Call the office [phone] for a follow-up appointment 1 week. Concerns or questions after 4:30 PM and on the weekends call [phone] Meaningful Use Info Meaningful Use Meaningful Use Diagnoses (Choose all that apply): None applicable Ischemic Stroke Statin Dosing Therapy Reference: STATIN DOSE THERAPY REFERENCE: * Patients > 75 years receive moderate or high dose statin therapy. * Patients 75 years or YOUNGER should receive HIGH intensity statin dose unless contraindicated. You will be required to document reason for non-treatment if statin daily dose does not meet guidelines. HIGH DOSE STATIN THERAPY DAILY Atorvastatin > than or = to 40 mg Rosuvastatin > than or = to 20 mg Amlodipine + Atorvastatin > than or = to 2.5/40 mg Ezetimibe + Simvastatin 10/80 mg Simvastatin 80mg Discharge Plan Admission Admit Date/Time: 10/02/24 11:32 Attending Provider: Cali Bardales Primary Care Provider: Miryam Tolbert Discharge Orders/Prescriptions Prescriptions: New amoxicillin-pot clavulanate 875-125 mg tablet 1 tab PO BID Qty: 20 0RF Referrals / Follow Up: Miryam Tolbert, COMPLIANCE TESTING ANALYST-C [Primary Care Provider] - Disposition Disposition (needs filled in before D/C Order can be placed): Home, Self Care
[2024-10-04 07:37] LABS: Anion Gap 12 (5-15); BUN 5 mg/dL (4-19); BUN/Creat Ratio 6.8 RATIO (10-20); Calcium,Total 8.2 mg/dL (7.6-11.0); Carbon Dioxide 22.9 mmol/L (21.0-32.0); Chloride 101 mmol/L (98-108); Creatinine, Serum 0.75 mg/dL (0.70-1.20); EST Glomerular Filtration Rate 89 (>60); Glucose 102 mg/dL (70-99); Potassium 3.9 mmol/L (3.3-5.1); Sodium Level 136 mmol/L (133-145)
[2024-10-04 10:23] VITALS: BP 109/60; PULSE 76; RESP 15; TEMP 36.2; O2SAT 93
--- NOTE | 2024-10-04 11:38 | PHA.DC_ITS ---
Pharmacy [facility] has performed discharge medication reconciliation and counseling for this patient. The patient's discharge medication list was reviewed for discrepancies and discrepancies were resolved. The patient was counseled on the following discharge medications and changes in medications for homegoing were reviewed. 1. AUGMENTIN The Reason for Use, instructions for use, and potential side effects were reviewed for all new medications. The patient's questions regarding all of their medications were answered. The patient was able to verbally demonstrate an understanding of their discharge medications. Medications at Discharge Home Medications amoxicillin 875 mg-potassium clavulanate 125 mg tablet 1 tab PO BID #20 tabs 10/04/24
== END 2024-10-04 11:56 | disposition home or self-care (01) | DRG 392 ==
LOC: ED 10:51 → PCU 12:05
PROVIDERS: Physician Assistant; Admitting Provider Surgery; Emergency Provider Emergency Medicine; PCP Nurse Practitioner Family; Visit Provider Surgery
DX: K57.20 Diverticulitis of large intestine with perforation and abscess without bleeding (principal)
CPT/HCPCS: 36415; 74177; 80048; 81001; 83605; 83735; 84100; 84156; 85025; 94668; 99284; Q9967; A4216; J0744

== ENCOUNTER 2024-11-21 08:07 | Day surgery (SDC) | payer OTHER, SELFPAY ==
--- NOTE | 2024-11-21 08:26 | PRE.ANES_ITS ---
ASA Classification* ASA Classification ASA Classification: 2 Assessment & Plan Anesthesia* Anesthesia Assessment Anesthesia Assessment: Discussed sedation and/or anesthesia options, risks, benefits, and alternatives with patient/parents/legal guardian/POA. Questions invited. The patient/parents/legal guardian/POA seems to understand and agrees to proceed with anesthesia plan. Reviewed the physical assessment, medical history, allergy history and patient home medications list prior to surgery/procedure/anesthetic and documented any changes. Performed airway and anesthesia risk assessments. Anesthesia Type Anesthesia Type: MAC Anesthesia Focused Assessment* Airway Assessment Mouth opens: >3 cm Mallampati Score: II Labs Anesthesia Preop lab: CBC WBC 8.8 K/mm3 (4.4-11.0) 10/04/24 06:30 10/04/24 RBC 4.19 M/mm3 (4.2-5.4) L 10/04/24 06:30 10/04/24 Hgb 12.9 g/dL (12.0-15.0) 10/04/24 06:30 10/04/24 Hct 37.4 % (37-47) 10/04/24 06:30 10/04/24 Plt Count 316 K/mm3 (150-450) 10/04/24 06:30 10/04/24 CHEMISTRY Potassium 3.9 mmol/L (3.3-5.1) 10/04/24 06:30 10/04/24 Sodium 136 mmol/L (133-145) 10/04/24 06:30 10/04/24 Magnesium 2.1 mg/dL (1.5-2.2) 10/03/24 06:47 10/03/24 Phosphorus 2.9 mg/dL (2.7-4.5) 10/03/24 06:47 10/03/24 BUN 5 mg/dL (4-19) 10/04/24 06:30 10/04/24 Creatinine 0.75 mg/dL (0.70-1.20) 10/04/24 06:30 10/04/24 Glucose 102 mg/dL (70-99) H 10/04/24 06:30 10/04/24 COAG Pre-Assessment Diagnosis/Proposed Procedure Planned Operative Procedure(s): COLONOSCOPY Anesthesia History 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 When Was Last Pacemaker Check QUESTION #4 FULL TEXT: You/Your Family Experience fever (hyperthermia) with Anesthesia Last Oral Intake Last Oral intake: Last Oral Intake NPO since Meds taken in AM with sips of water? 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 Female Yes 11/18/24 09:45 HX of Motion Sickness Yes 11/18/24 09:45 HX of N/V After Surgery No 11/18/24 09:45 Non-Smoker Yes 11/18/24 09:45 Duration of Surgery greater No 11/18/24 09:45 than 60 minutes Number of Risk Factors 3 11/18/24 09:45 PONV Score Moderate Risk 11/18/24 09:45 Height & Weight Height & Weight: Anesthesia: Height & Weight Height 5 ft 9 in 10/10/24 12:42 Respiratory Assessment Respiratory Assessment - assistant professor of economics: Respiratory Tract Infection Hx - assistant professor of economics Hx Respiratory Tract Infection No 11/18/24 09:45 STOP Sleep Apnea STOP Sleep Apnea - assistant professor of economics: STOP Sleep Apnea - assistant professor of economics Hx Hypertension No 11/18/24 09:45 Hx Sleep Apnea No 11/18/24 09:45 CPAP BIPAP Do you snore loudly (louder No 11/18/24 09:45 than talking or can be heard Do you often feel tired/ No 11/18/24 09:45 fatigued/ sleepy during daytime? Has anyone observed you stop No 11/18/24 09:45 breathing during sleep? STOP Results Negative 11/18/24 09:45 QUESTION #5 FULL TEXT : Do you snore loudly (louder than talking or can be heard through closed doors)? 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 Specify any problems Hx of Preganancy in last 3 No 11/18/24 09:45 Months Nurse Filling Out Transfusion [id number] 11/18/24 09:45 & Questions: Date: 11/18/24 11/18/24 09:45 Time: 09:48 11/18/24 09:45 Patient unable to answer at this time (ie. 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: /Reproductive Hx- assistant professor of economics Hx Now Gestational Age (in weeks): EDC: Hx Hx Para Hx Section SAB Active Medications Active Medications: Current Medications Generic Name Dose Route Start Last Admin Trade Name Freq PRN Reason Stop Dose Admin Lactated Ringer's 1,000 mls @ 15 mls/hr 11/21/24 08:30 IV .Q48H ALEX PFSH Medical History Umbilical hernia History of diverticulitis Non-smoker Strain of muscle and tendon of long extensor muscle of toe at ankle and foot level, left foot, subsequent encounter Home Medications ?Medication ?Instructions ?Recorded ?Last Taken ?Type collagen peptides 1 dose PO DAILY 10/10/24 Unk nown History Allergy/AdvReac Type Severity Reaction Status Date / Time No Known Allergies Allergy Verified 11/18/24 09:44 Surgical History Neuroma of foot Metal plates in left arm Social History household members: spouse housing: house current occupational status: unemployed Smoking Status: Never smoker alcohol intake: current details: social substance use type: does not use Review of Systems (Anesthesia) ROS Narrative System reviewed and no additional complaints, except as documented.
[2024-11-21 08:31] VITALS: BP 139/92; PULSE 92; RESP 16; TEMP 36.4; O2SAT 100; BMI 26.2
[2024-11-21] MEDS: Lactated Ringers 1,000 ML 15 ML IV (08:35)
--- OUTSIDE RECORDS SUMMARY | 2024-11-21 08:44 | XMS RPT_ITS | CCD ---
Author Organization [facility] Care Team Providers Care Leather Whitener Name Role Phone HUANG PONCE Attending Unavailable HUANG PONCE Primary Care Unavailable HUANG PONCE Admitting Unavailable Unavailable Primary Care Provider Unavailallan Tolbert PARTITION ASSEMBLY MACHINE OPERATOR.[facility] GR[employer]ER STONE MILLMiryam Primary Care Provider Didi PARTITION ASSEMBLY MACHINE OPERATOR.Miryam CR Primary Care Provider Pcp, Do Not Notify Primary Care Provider Unavail able Ava Nassar CGC Unavailable AVA NASSAR Attending Unavailable REFERRED, SELF Referring Unavailable AVA NASSAR Attending Unavailable DA ALLEN Referring Unavailable DA ALLEN Attending Unavailable TAYLA QUACH Attending Unavailable DIDI, MIRYAM Primary Care Unavailable DIDI, MIRYMA Primary Care Unavailable SYLVIA KENDRICK Attending Unavailable MIRYMA TOLBERT Attending Unavailable DIDI, MIRYAM Primary Care Unavailable DIDI, MIRYAM Primary Care Unavailable JEAN MARIE SCOTT Attending Unavailable Didi, Miryam Primary Care Unavailable Yelena Aragon Attending Unavailable Cali Bardales Consulting Unavailable Cali Bardales Admitting Unavailable Cali Bardales Attending Unavailable Didi, Miryam Primary Care Unavailable Miryam Tolbert Referring Unavailable Cali Bardales Attending Unavailable Didi, Miryam Primary Care Unavailable Isaura Scott Attending Unavailable Cali Bardales Admitting Unavailable Didi, Miryam Primary Care Unavailable Cali Bardales Attending Unavailable Medications Current Medications Medication Drug Class(es) Dates Sig (Normalized) Sig (Original) predniSONE 10 mg oral tablet (1 source) Start: 11-24-2023 End: 12-06-2023 predniSONE (DELTASONE) 10 mg tablet Indications: Plant dermatitis Take 4 tabs daily x 3 days, then 3 tabs x 3 days, 2 tabs x 3 days, then 1 tab x5 days with food. 32 tablet 0 11/24/2023 12/06/2023 Active Completed/Discontinued Medications Medication Drug Class(es) Dates Sig (Normalized) Sig (Original) simvastatin 5 mg oral tablet (2 sources) HMG-CoA Reductase Inhibitor Start: 09-25-2023 End: 10-17-2023 take 1 tablet by mouth once daily at bedtime simvastatin (ZOCOR) 5 mg tablet Indications: Hyperlipidemia, mixed Take 1 tablet by mouth daily at bedtime. For cholesterols 90 tablet 1 09/25/2023 10/17/2023 Discontinued Comment on above: Take 1 tablet by karol th daily at bedtime. For cholesterols Problems Active Problems Problem Classification Problem Date Documented Da te Episodic/Chronic Abdominal pain (3 sources) Left lower quadrant pain; Translations: [Left lower quadrant pain] Onset: 10-02-2024 10-02-2024 Episodic Disorders of lipid metabolism (2 sources) Mixed hyperlipidemia; Translations: [Mixed hyperlipidemia] 09-25-2023 Chronic Diverticulosis and diverticulitis (4 sources) Diverticulitis; Translations: [Diverticulitis of intestine, part unspecified, without perforation or abscess without bleeding] Onset: 10-08-2024 10-08-2024 Chronic Genitourinary symptoms and ill-defined conditions (2 sources) Increased frequency of urination; Translations: [Frequency of micturition] Onset: 10-02-2024 10-02-2024 Episodic Other screening for suspected conditions (not mental disorders or infectious disease) (6 sources) Patient encounter status; Translations: [Encounter for screening mammogram for malignant neoplasm of breast] 09-22-2023 Episodic Residual codes; unclassified (1 source) Family history of aneurysm of abdominal aorta; Translations: [Family history of ischemic heart disease and other diseases of the circulatory system] 09-22-2023 Episodic Residual codes; unclassified (2 sources) Family history of prostate cancer; Translations: [Family history of malignant neoplasm of prostate] 04-15-2024 Episodic Residual codes; unclassified (2 sources) Family history of hereditary disease; Translations: [Family history of other congenital malformations, deformations and chromosomal abnormalities] 04-15-2024 Episodic Residual codes; unclassified (1 source) Medical care unavailable; Translations: [Procedure and treatment not carried out for other reasons] 10-02-2024 Episodic Urinary tract infections (1 source) Urinary tract infectious disease Onset: 10-02-2024 Episodic Past or Other Problems Problem Classification Problem Date Documented Da te Episodic/Chronic Allergic reactions (10 sources) Solar degeneration; Translations: [Other skin changes due to chronic exposure to nonionizing radiation] Onset: 05-25-2009 05-25-2009 Episodic Other skin disorders (8 sources) Inflamed seborrheic keratosis; Translations: [Inflamed seborrheic keratosis] Onset: 05-25-2009 05-25-2009 Episodic Other skin disorders (8 sources) Seborrheic keratosis; Translations: [Other seborrheic keratosis] Onset: 05-25-2009 05-25-2009 Episodic Other skin disorders (8 sources) Solar lentigo; Translations: [Other melanin hyperpigmentation] Onset: 05-25-2009 05-25-2009 Episodic Unclassified (1 source) Patient encounter status 08-27-2024 Results Test Name Value Interpretation Reference Range Facility Surgery Visit Reporton 10-10 Surgery Visit Report [facility] [address] [place] [address] OFFICE VISIT Date of Service: 10/10/24 MR#: [id number] Acct: [id number] Name: SOFÍA GALO Rep #: [id number] : 1960 Provider: Dr. Cali sparrow MD Age/Sex: 64/F Location: [facility] Status: Signed Intake Vital Signs 10/02/24 16:18 10/10/24 12:42 Height 5 ft 9 in 5 ft 9 in Weight: 178 lb BMI 26.2 BP 130/75 H Blood Pressure Location Rt brachial Position Sitting Respiration 17 Pulse 87 Pulse Source Monitor Pulse Oximetry (%) 97 Oxygen Delivery Method room air Intake Visit Reasons: HOSPITAL F/U- DIVERTICULITIS Chief Complaint: hospital f/u diverticulitis, colonoscopy Is patient in pain?: No Allergies No Known Allergies Allergy (Verified 10/10/24 12:44) Medications ???Medication ???Instructions ???Recorded ???Confirmed ???Type amoxicillin 875 mg-potassium 1 tab PO BID #20 tabs 10/04/2407/06 Rx clavulanate 125 mg tablet collagen peptides PO DAILY 10/10/24 History creatine monohydrate ea PO 10/10/24 10/10/24 History PFSH Medical History (Updated 10/10/24 @ 17:[address] Cali Bardales MD) Strain of muscle and tendon of long extensor muscle of toe at ankle and foot level, left foot, subsequent encounter Surgical History (Updated 10/10/24 @ 12:42 by Allison Song) Neuroma of foot Metal plates in left arm Social History (Updated 10/02/24 @ 10:17 by Emily Rosales) household members: spouse housing: house current occupational status: unemployed Smoking Status: Never smoker alcohol intake: current details: social substance use type: does not use HPI HPI HPI: Patient is a 64-year-old female who presents for follow-up of recent admission for acute diverticulitis that concluded with a hospital discharge on 10/04/2024. Today she states that she is experiencing no abdominal pain since the weekend. She also confirms that her bowel movements have remained regular. She notes some initial frequent loose stools but these have gradually returned to a soft/formed texture. She also notes that she maintained a low fiber diet until just last couple days. Lastly she reports that she has restricted her activity to walking but is eager to return to tennis. ROS General General: No weight change, appetite, fatigue, colon cancer, breast cancer or weakness HEENT HEENT: No difficulty swallowing, eye injury, eye surgery, swollen glands or hoarseness Endo Endocrine: No thyroid disease, diabetes mellitus, thyroid cancer, Hair loss, heat intolerance or cold intolerance Skin Skin: No rash or changing moles Musc Musculoskeletal: No back problems, arthritis, rheumatoid arthritis, gout or joint pain Cardio Cardiovascular: No murmur, pacemaker, heart disease, atrial fibrillation, high blood pressure, heart attack, heart stent, palpitations, shortness of breath with exertion or chest pain Psych Psychiatric: No depression, anxiety or hearing voices Resp Respiratory: No shortness of breath, No sleep apnea, No cough, No COPD, No asthma, No emphysema and No wheezing Gastro Gastrointestinal: No abdominal pain, No nausea or vomiting, No diarrhea, No constipation, No blood in stool, No acid reflux, No hemorrhoids, No ulcers, No gallbladder problem and No black,tarry stools Serafin Hematologic: No blood thinners, No blood disorders, No bleeding, No anemia and No blood clots Neuro Neurologic: No system reviewed and no additional complaints, except as documented, No as per HPI, No abnormal gait, No abnormal hearing, No abnormal movements, No abnormal speech, No behavioral changes, No burning sensations, No confusion, No convulsions, No disequilibrium, No dizziness, No localized weakness, No frequent falls, No headache(s), No lack of coordination, No loss of vision, No memory loss, No numbness, No other visual disturbances, No radicular pain, No restless legs, No sensory deficit, No syncope, No tingling, No tremor(s), No weakness and No other Exam Const General: cooperative, comfortable, no acute distress and well developed Resp Effort Inspection: normal respiratory effort GI Other: Persistent freely reducible, nontender umbilical hernia containing fat. Nondistended, soft, reportedly nontender the left lower quadrant (but patient states there is a difference in the perception of pressure over that area) Assessment and Plan Assessment and Plan (1) Acute diverticulitis: Status: Acute Comment: Patient is a 64-year-old female who makes outpatient follow-up for recent inpatient admission occasioned by diagnosis of complicated diverticulitis. She is doing very well since hospital discharge and has just a few days remaining of her antibiotic course but has experienced resolution of her symptom (more content not included)... Normal [facility] CNOVon 10-08-2024 [facility] SOF[facility]A GALO ([id number]) 1960 F Date Time Provider Department 10/08/24 2:00 PM MIRYAM TOLBERT During your visit today, we recorded the following information about you: Pulse Blood pressure Weight 81/minute 127/76 81.2 kg Miryam Tolbert APRN.[employer] 10/08/2024 2:17 PM Signed Chief Complaint Patient presents with: Hospital F/U HPI Sofía Galo is a 64 year old female who presents here today for Above Complaints. Diverticulitis: - Admitted to [facility] on the for diverticulitis. - Initially treated with Cipro and Flagyl; switched to Augmentin BID before discharge. - Currently on Augmentin BID. - Reports feeling fine now. - Prior to admission, experienced fatigue, chills, and myalgias, initially thought to be jet lag or possible COVID-19 exposure. - Developed nausea and lower abdominal pressure, prompting a visit to [facility]. - [facility] noted elevated blood pressure and significant abdominal pain on palpation, leading to ER referral. - ER evaluation included blood work (no leukocytosis) and CT scan, revealing diverticulitis with fat stranding and intra-abdominal abscess (3.3 x 2 cm). - Initially informed by ER physician that condition was not perforated or abscessed; later informed by surgeon of abscess and perforation, with potential need for emergency surgery. - Expresses confusion and frustration about the severity of the condition given minimal symptoms. - Managed pain with Tylenol and Advil; adhered to clear liquid diet as instructed. - Denies any previous hospitalizations. Past medical history, appointments, medications, allergies reviewed. Previous Medical History PAST MEDICAL HISTORY Diagnosis Date NEGATIVE MEDICAL HISTORY Previous Surgical History PAST SURGICAL HISTORY Procedure Laterality Date EXCISE DIGITAL NEUROMA Right PAST SURGICAL HISTORY OF Broken left arm,and broken right thumb Family History FAMILY HISTORY Problem Relation Age of Onset Osteoporosis Mother Seizures Mother Coronary Artery Disease Father Heart Attack Heart Father Heart attack Lipids Father Asthma Sister Osteoporosis Sister other (connective tissue disorder) Sister Heart Attack Paternal Grandfather other (smoker) Paternal Grandfather Patient Allergies ALLERGIES No Known Allergies Current Medications No current outpatient medications on file prior to visit. No current facility-administere d medications on file prior to visit. Social History Social History Tobacco Use Smoking status: Never Substance Use Topics Alcohol use: Yes Comment: occasionally Drug use: Never Review of Symptoms REVIEW OF SYSTEMS SEE HPI EXAM: BP 127/76 Pulse 81 Wt 81.2 kg (179 lb) LMP 11/14/2010 BMI 26.43 kg/m? General Appearance: Well appearing, alert, in no acute distress, well-hydrated, well nourished.. Abdomen: Normal abdominal exam, Abdomen soft, non-tender. Bowel sounds normal. No masses, organomegaly. Health Maintenance List Depression Screening Never done Anxiety Screening Never done Hepatitis C Screening Never done HIV Screening Never done Cervical Cancer Screening Never done Mammogram Screening Never done Colorectal Cancer Screening Never done Shingrix Vaccine(1 of 2) Never done Pneumococcal Vaccine: 50+(1 of 1 - PCV) Never done Influenza Vaccine(1) due on 02/11/2024 Covid-19 Vaccine(5 - season) due on 02/11/2024 Diabetes Screening due on 09/21/2026 Lipid Screening due on 09/21/2028 DTaP,Tdap,Td Vaccine(4 - Td or Tdap) due on 09/07/2033 RSV Vaccine(1 - 1-dose 75+ series) due on 2035 ASSESSMENT/PLAN: 1. Diverticulitis - ICD9: 562.11, ICD10: K57.92 -Continue augmentin. Follow up is symptoms recur or worsen. -Follow up with Dr. Bardales as scheduled. Scheduled for colonoscopy 6 weeks post treatment. Miryam Tolbert APRN.Miryam Llanos APRN.CNP 10/08/2024 2:14 PM Signed You are taking Augmentin twice a day to treat your diverticulitis. Continue with the prescribed antibiotic regimen as directed. Allergies As of Date: 10/08/2024 (No Known Allergies) Date Reviewed: 10/08/2024 Reviewed by: Cheryl Blackwood MA - Fully Assessed Reason for Visit: Hospital F/U [57] Primary Visit Diagnosis:Diverticul itis [K57.92] Problem List As Of Date 10/08/2024 Noted Resolved Irritated//Inflamed Seborrheic Keratosis [L82.0]05/25/2009 Other Seborrheic Keratosis [L82.1] 05/25/2009 Solar Lentigo [L81.4] 05/25/2009 Sun-Damaged Skin [L57.8] 05/25/2009 Other instructions from your clinician: You are taking Augmentin twice a day to treat your diverticulitis. Continue with the prescribed antibiotic regimen as directed. Disposition: Return if symptoms worsen or fail to improve. Follow-up and Disposition History for Encounter Date Provider Department (more content not included)... Normal [facility] Basic Metabolic Profile (BMP )on 10-04-2024 BUN/CRE 6.8 RATIO Low 10-20 [facility] Comment on above: Performed By: #### L 500.2500, L100.0100 #### [facility] [address] [place], [address] Calcium [Mass/Vol] 8.2 mg/dL Normal 7.6-11.0 [facility] Comment on above: Performed By: #### L 500.2500, L100.0100 #### [facility] [address] [place], [address] Chloride [Moles/Vol] 101 mmol/L Normal 98-108 [facility] Comment on above: Performed By: #### L 500.2500, L100.0100 #### [facility] [address] [place], [address] CO2 [Moles/Vol] 22.9 mmol/L Normal 21.0-32.0 [facility] Comment on above: Performed By: #### L 500.2500, L100.0100 #### [facility] [address] [place], [address] Creatinine [Mass/Vol] 0.75 mg/dL Normal 0.70-1.20 [facility] Comment on above: Performed By: #### L 500.2500, L100.0100 #### [facility] [address] [place], [address] ECRCL 86.80 ml/min Normal 50-250 [facility] Comment on above: Performed By: #### L 500.2500, L100.0100 #### [facility] [address] [place], [address] GAP 12 Normal 5-15 [facility] Comment on above: Performed By: #### L 500.2500, L100.0100 #### [facility] [address] [place], [address] GFR/1.73 sq M.predicted among non-blacks MDRD (S/P/Bld) [Vol rate/Area] 89 mL/min/{1.73_m2} Normal >60 [facility] Comment on above: Result Comment: mL/m in/1.73m2 CKD-EPI Creatinine Equation (2020) Performed By: #### L 500.2500, L100.0100 #### [facility] [address] [place], [address] Glucose [Mass/Vol] 102 mg/dL High 70-99 [facility] Comment on above: Performed By: #### L 500.2500, L100.0100 #### [facility] [address] [place], [address] Potassium [Moles/Vol] 3.9 mmol/L Normal 3.3-5.1 [facility] Comment on above: Performed By: #### L 500.2500, L100.0100 #### [facility] [address] [place], [address] Sodium [Moles/Vol] 136 mmol/L Normal 133-145 [facility] Comment on above: Performed By: #### L 500.2500, L100.0100 #### [facility] [address] [place], [address] Urea nitrogen [Mass/Vol] 5 mg/dL Normal 4-19 [facility] Comment on above: Performed By: #### L 500.2500, L100.0100 #### [facility] [address] [place], [address] CBC W/Diff, Automatedon 09-11 Absolute Lymph 0.97 X10 3/uL Normal 0.83-4.51 [facility] Comment on above: Performed By: #### L 500.2500, L100.0100 #### [facility] [address] [place], [address] Absolute Neut 6.8 X10 3/uL Normal 2.0-7.7 [facility] Comment on above: Performed By: #### L 500.2500, L100.0100 #### [facility] [address] [place], [address] Basophils/100 WBC (Bld) 0.6 % Normal 0-1 [facility] Comment on above: Performed By: #### L 500.2500, L100.0100 #### [facility] [address] [place], [address] Eosinophils/100 WBC (Bld) 0.5 % Normal 0-5 [facility] Comment on above: Performed By: #### L 500.2500, L100.0100 #### [facility] [address] [place], [address] Erythrocyte distribution width (RBC) [Ratio] 12.6 % Normal 11.6-14.6 [facility] Comment on above: Performed By: #### L 500.2500, L100.0100 #### [facility] [address] [place], [address] Hematocrit (Bld) [Volume fraction] 37.4 % Normal 37-47 [facility] Comment on above: Performed By: #### L 500.2500, L100.0100 #### [facility] [address] [place], [address] Hemoglobin (Bld) [Mass/Vol] 12.9 g/dL Normal 12.0-15.0 [facility] Comment on above: Performed By: #### L 500.2500, L100.0100 #### [facility] [address] [place], [address] IG% 0.300 Normal 0.0-0.9 [facility] Comment on above: Result Comment: IG% - Immature Granulocytes (promyelocytes, myelocytes and metamyelocytes) > 1% indicates that a LEFT SHIFT is Present. Performed By: #### L 500.2500, L100.0100 #### [facility] [address] [place], [address] Lymphocytes/100 WBC (Bld) 11.0 % Low 19-41 [facility] Comment on above: Performed By: #### L 500.2500, L100.0100 #### [facility] [address] [place], [address] MCH (RBC) [Entitic mass] 30.8 pg Normal 27.0-32.0 [facility] Comment on above: Performed By: #### L 500.2500, L100.0100 #### [facility] [address] [place], [address] MCHC (RBC) [Mass/Vol] 34.5 g/dL Normal 32-36 [facility] Comment on above: Performed By: #### L 500.2500, L100.0100 #### [facility] [address] [place], [address] MCV (RBC) [Entitic vol] 89.3 fL Normal 81-99 [facility] Comment on above: Performed By: #### L 500.2500, L100.0100 #### [facility] [address] [place], [address] Monocytes/100 WBC (Bld) 10.6 % High 0-10 [facility] Comment on above: Performed By: #### L 500.2500, L100.0100 #### [facility] [address] [place], [address] Neutrophils/100 WBC (Bld) 77.0 % High 47-70 [facility] Comment on above: Performed By: #### L 500.2500, L100.0100 #### [facility] [address] [place], [address] Nucleated RBC (Bld) [#/Vol] 0 10*3/uL Normal 0-5 [facility] Comment on above: Performed By: #### L 500.2500, L100.0100 #### [facility] [address] [place], [address] Platelet mean volume (Bld) [Entitic vol] 8.7 fL Normal 6.2-12.0 [facility] Comment on above: Performed By: #### L 500.2500, L100.0100 #### [facility] [address] [place], [address] Platelets (Bld) [#/Vol] 316 10*3/uL Normal 150-450 [facility] Comment on above: Performed By: #### L 500.2500, L100.0100 #### [facility] [address] [place], [address] RBC (Bld) [#/Vol] 4.19 10*6/uL Low 4.2-5.4 [facility] Comment on above: Performed By: #### L 500.2500, L100.0100 #### [facility] [address] [place], [address] RDW SD 41.2 fl Normal 35.1-43.9 [facility] Comment on above: Performed By: #### L 500.2500, L100.0100 #### [facility] [address] [place], [address] WBC (Bld) [#/Vol] 8.8 10*3/uL Normal 4.4-11.0 [facility] Comment on above: Performed By: #### L 500.2500, L100.0100 #### [facility] [address] [place], [address] Discharge Instructionon 09-11 Discharge Instruction [facility] Medical Records Department [address] [place] [address] Instructions for Home/Discharge Instructions 10/04/24 0731 MR#: [id number] Acct: [id number] Name: SOFÍA GALO Rep #: [id number] : 1960 64 From: Isaura Scott MD PCP: ISMAEL Luna Status:ADM IN Discharge Instructions Diet Discharge Diet: - (Transitional diet/low fiber) Activity Discharge Activity: Return to Normal Activity Follow Up Care Please Follow Up With: Cali Bardales MD When: Call the office [phone] for a follow-up appointment 1 week. Concerns or questions after 4:30 PM and on the weekends call [phone] Test Results: Test results from this visit will be discussed in further detail at your follow-up appointment, if applicable. Discharge Plan Admission Admit Date/Time: 10/02/24 11:32 Attending Provider: Cali Bardales Primary Care Provider: Miryam Tolbert Discharge Orders/Prescriptions Prescriptions: New amoxicillin-pot clavulanate 875-125 mg tablet 1 tab PO BID Qty: 20 0RF Referrals / Follow Up: Miryam Tolbert NP-C [Primary Care Provider] - Disposition Disposition (needs filled in before D/C Order can be placed): Home, Self Care 10/04/24 0934 Isaura Scott MD CC: HOISTING MACHINE OPERATOR-C Miryam Tolbert Signed Normal [facility] Basic Metabolic Profile (BMP )on 10-03-2024 BUN/CRE 11.3 RATIO Normal 10-20 [facility] Comment on above: Performed By: #### L 501.5200, L500.2500, L100.0100, L501.2300 #### [facility] [address] [place], [address] Calcium [Mass/Vol] 8.7 mg/dL Normal 7.6-11.0 [facility] Comment on above: Performed By: #### L 501.5200, L500.2500, L100.0100, L501.2300 #### [facility] [address] [place], [address] Chloride [Moles/Vol] 101 mmol/L Normal 98-108 [facility] Comment on above: Performed By: #### L 501.5200, L500.2500, L100.0100, L501.2300 #### [facility] [address] [place], [address] CO2 [Moles/Vol] 23.2 mmol/L Normal 21.0-32.0 [facility] Comment on above: Performed By: #### L 501.5200, L500.2500, L100.0100, L501.2300 #### [facility] [address] [place], [address] Creatinine [Mass/Vol] 0.71 mg/dL Normal 0.70-1.20 [facility] Comment on above: Performed By: #### L 501.5200, L500.2500, L100.0100, L501.2300 #### [facility] [address] [place], [address] ECRCL 91.69 ml/min Normal 50-250 [facility] Comment on above: Performed By: #### L 501.5200, L500.2500, L100.0100, L501.2300 #### [facility] Laboratory [address] [place], [address] GAP 12 Normal 5-15 [facility] Comment on above: Performed By: #### L 501.5200, L500.2500, L100.0100, L501.2300 #### [facility] [address] [place], [address] GFR/1.73 sq M.predicted among non-blacks MDRD (S/P/Bld) [Vol rate/Area] 96 mL/min/{1.73_m2} Normal >60 [facility] Comment on above: Result Comment: mL/m in/1.73m2 CKD-EPI Creatinine Equation (2020) Performed By: #### L 501.5200, L500.2500, L100.0100, L501.2300 #### [facility] [address] [place], [address] Glucose [Mass/Vol] 103 mg/dL High 70-99 [facility] Comment on above: Performed By: #### L 501.5200, L500.2500, L100.0100, L501.2300 #### [facility] [address] [place], [address] Potassium [Moles/Vol] 4.2 mmol/L Normal 3.3-5.1 [facility] Comment on above: Performed By: #### L 501.5200, L500.2500, L100.0100, L501.2300 #### [facility] [address] [place], [address] Sodium [Moles/Vol] 136 mmol/L Normal 133-145 [facility] Comment on above: Performed By: #### L 501.5200, L500.2500, L100.0100, L501.2300 #### [facility] [address] [place], [address] Urea nitrogen [Mass/Vol] 8 mg/dL Normal 4-19 [facility] Comment on above: Performed By: #### L 501.5200, L500.2500, L100.0100, L501.2300 #### [facility] [address] [place], [address] CBC W/Diff, Automatedon 04-2 Absolute Lymph 1.31 X10 3/uL Normal 0.83-4.51 [facility] Comment on above: Performed By: #### L 501.5200, L500.2500, L100.0100, L501.2300 #### [facility] [address] [place], [address] Absolute Neut 7.3 X10 3/uL Normal 2.0-7.7 [facility] Comment on above: Performed By: #### L 501.5200, L500.2500, L100.0100, L501.2300 #### [facility] [address] [place], [address] Basophils/100 WBC (Bld) 0.4 % Normal 0-1 [facility] Comment on above: Performed By: #### L 501.5200, L500.2500, L100.0100, L501.2300 #### [facility] [address] [place], [address] Eosinophils/100 WBC (Bld) 0.3 % Normal 0-5 [facility] Comment on above: Performed By: #### L 501.5200, L500.2500, L100.0100, L501.2300 #### [facility] [address] [place], [address] Erythrocyte distribution width (RBC) [Ratio] 12.8 % Normal 11.6-14.6 [facility] Comment on above: Performed By: #### L 501.5200, L500.2500, L100.0100, L501.2300 #### [facility] [address] [place], [address] Hematocrit (Bld) [Volume fraction] 41.0 % Normal 37-47 [facility] Comment on above: Performed By: #### L 501.5200, L500.2500, L100.0100, L501.2300 #### [facility] [address] [place], [address] Hemoglobin (Bld) [Mass/Vol] 13.8 g/dL Normal 12.0-15.0 [facility] Comment on above: Performed By: #### L 501.5200, L500.2500, L100.0100, L501.2300 #### [facility] [address] [place], [address] IG% 0.600 Normal 0.0-0.9 [facility] Comment on above: Result Comment: IG% - Immature Granulocytes (promyelocytes, myelocytes and metamyelocytes) > 1% indicates that a LEFT SHIFT is Present. Performed By: #### L 501.5200, L500.2500, L100.0100, L501.2300 #### [facility] [address] [place], [address] Lymphocytes/100 WBC (Bld) 13.3 % Low 19-41 [facility] Comment on above: Performed By: #### L 501.5200, L500.2500, L100.0100, L501.2300 #### [facility] [address] [place], [address] MCH (RBC) [Entitic mass] 30.5 pg Normal 27.0-32.0 [facility] Comment on above: Performed By: #### L 501.5200, L500.2500, L100.0100, L501.2300 #### [facility] [address] [place], [address] MCHC (RBC) [Mass/Vol] 33.7 g/dL Normal 32-36 [facility] Comment on above: Performed By: #### L 501.5200, L500.2500, L100.0100, L501.2300 #### [facility] [address] [place], [address] MCV (RBC) [Entitic vol] 90.7 fL Normal 81-99 [facility] Comment on above: Performed By: #### L 501.5200, L500.2500, L100.0100, L501.2300 #### [facility] [address] [place], [address] Monocytes/100 WBC (Bld) 10.9 % High 0-10 [facility] Comment on above: Performed By: #### L 501.5200, L500.2500, L100.0100, L501.2300 #### [facility] [address] [place], [address] Neutrophils/100 WBC (Bld) 74.5 % High 47-70 [facility] Comment on above: Performed By: #### L 501.5200, L500.2500, L100.0100, L501.2300 #### [facility] [address] [place], [address] Nucleated RBC (Bld) [#/Vol] 0 10*3/uL Normal 0-5 [facility] Comment on above: Performed By: #### L 501.5200, L500.2500, L100.0100, L501.2300 #### [facility] [address] [place], [address] Platelet mean volume (Bld) [Entitic vol] 9.1 fL Normal 6.2-12.0 [facility] Comment on above: Performed By: #### L 501.5200, L500.2500, L100.0100, L501.2300 #### [facility] [address] [place], [address] Platelets (Bld) [#/Vol] 351 10*3/uL Normal 150-450 [facility] Comment on above: Performed By: #### L 501.5200, L500.2500, L100.0100, L501.2300 #### [facility] [address] [place], [address] RBC (Bld) [#/Vol] 4.52 10*6/uL Normal 4.2-5.4 [facility] Comment on above: Performed By: #### L 501.5200, L500.2500, L100.0100, L501.2300 #### [facility] [address] [place], [address] RDW SD 42.4 fl Normal 35.1-43.9 [facility] Comment on above: Performed By: #### L 501.5200, L500.2500, L100.0100, L501.2300 #### [facility] [address] [place], [address] WBC (Bld) [#/Vol] 9.8 10*3/uL Normal 4.4-11.0 [facility] Comment on above: Performed By: #### L 501.5200, L500.2500, L100.0100, L501.2300 #### [facility] [address] [place], [address] Magnesiumon 10-03-2024 Magnesium [Mass/Vol] 2.1 mg/dL Normal 1.5-2.2 [facility] Comment on above: Performed By: #### L 501.5200, L500.2500, L100.0100, L501.2300 #### [facility] [address] [place], [address] Phosphoruson 10-03-2024 Phosphate [Mass/Vol] 2.9 mg/dL Normal 2.7-4.5 [facility] Comment on above: Performed By: #### L 501.5200, L500.2500, L100.0100, L501.2300 #### [facility] [address] 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 Coronal and Sagittal reconstruction series were provided. PATIENT PREPARATION: Per protocol ORAL CONTRAST TYPE: None. CONTRAST: Isovue 370 VOLUME: 100 mL One or more dose reduction techniques were used (e.g., Automated exposure control, adjustment of the mA and/or kV according to patient size, use of iterative reconstruction technique. RADIATION DOSE SUMMARY: CTDlvol: 25 mGy DLP: 800 mGycm COMPARISON: None FINDINGS: Lung bases: Bibasilar atelectasis/scarring . The heart is normal in size. Liver: The liver is normal in size without focal hepatic mass. The major portal veins are patent. No biliary ductal dilation. Gallbladder: No radiopaque stones within the gallbladder. Spleen: Normal-size. Pancreas: Unremarkable. Adrenals: No adrenal mass. Kidneys: No hydronephrosis or nephrolithiasis. Bladder: Mildly distended and unremarkable. Reproductive Organs: Normal uterine size and contour. Ovaries are unremarkable. Bowel: The bowel loops are nondilated. Diverticulitis within the distal sigmoid colon (coronal image 42) with intra-abdominal abscess measuring approximately 3.3 x 2.0 cm. Adjacent fat stranding and edema. Moderate distal colonic diverticulosis. No ascites or free air. No inflammatory mass in the expected region of the appendix. Lymph nodes: No suspicious lymphadenopathy. Vasculature: Minimal calcification of the aortoiliac vessels. Bones/soft tissues: Small fat containing umbilical hernia. Thoracolumbar spondylosis with degenerative disc disease at L4-5. CT/Abdomen/Pelvis W IV Cont ONLY IMPRESSION: 1. Acute diverticulitis of the sigmoid colon with intra-abdominal abscess formation. No perforation. Dr. Acosta discussed these findings with Dr. Catherine via telephone at 10:41 am on 10/02/24. Reading Location: [id number] CC: ISMAEL Tolbert; Dr. Benja Catherine, Insurance Claim Representative: Signed Normal [facility] Bacteria Ur Culton Bacteria identified Cx Nom (U) ORGANISM ID: 1 <10,000 CFU/ml Normal urogenital eleanor Normal [facility] Comment on above: Performed By: #### 6 30-4 #### [facility] CLIA [id number] [address] [place] [address] [place] Basic Metabolic Profile (BMP )on 10-02-2024 BUN/CRE 14.4 RATIO Normal 10-20 [facility] Comment on above: Performed By: #### L 100.0100, L503.6005, L500.2500 ####[facility] [address] [place], [address] Calcium [Mass/Vol] 9.6 mg/dL Normal 7.6-11.0 [facility] Comment on above: Performed By: #### L 100.0100, L503.6005, L500.2500 ####[facility] [address] [place], [address] Chloride [Moles/Vol] 98 mmol/L Normal 98-108 [facility] Comment on above: Performed By: #### L 100.0100, L503.6005, L500.2500 ####[facility] [address] [place], [address] CO2 [Moles/Vol] 22.1 mmol/L Normal 21.0-32.0 [facility] Comment on above: Performed By: #### L 100.0100, L503.6005, L500.2500 ####[facility] [address] [place], [address] Creatinine [Mass/Vol] 0.77 mg/dL Normal 0.70-1.20 [facility] Comment on above: Performed By: #### L 100.0100, L503.6005, L500.2500 ####[facility] [address] [place], [address] ECRCL 85.27 ml/min Normal 50-250 [facility] Comment on above: Performed By: #### L 100.0100, L503.6005, L500.2500 ####[facility] [address] [place], [address] GAP 14 Normal 5-15 [facility] Comment on above: Performed By: #### L 100.0100, L503.6005, L500.2500 ####[facility] [address] [place], [address] GFR/1.73 sq M.predicted among non-blacks MDRD (S/P/Bld) [Vol rate/Area] 87 mL/min/{1.73_m2} Normal >60 [facility] Comment on above: Result Comment: mL/m in/1.73m2 CKD-EPI Creatinine Equation (2020) Performed By: #### L 100.0100, L503.6005, L500.2500 ####[facility] [address] [place], [address] Glucose [Mass/Vol] 135 mg/dL High 70-99 [facility] Comment on above: Performed By: #### L 100.0100, L503.6005, L500.2500 ####[facility] [address] [place], [address] Potassium [Moles/Vol] 4.3 mmol/L Normal 3.3-5.1 [facility] Comment on above: Performed By: #### L 100.0100, L503.6005, L500.2500 ####[facility] [address] [place], [address] Sodium [Moles/Vol] 134 mmol/L Normal 133-145 [facility] Comment on above: Performed By: #### L 100.0100, L503.6005, L500.2500 ####[facility] [address] [place], [address] Urea nitrogen [Mass/Vol] 11 mg/dL Normal 4-19 [facility] Comment on above: Performed By: #### L 100.0100, L503.6005, L500.2500 ####[facility] [address] [place], [address] CBC W/Diff, Automatedon 04-2 -2024 Absolute Lymph 1.30 X10 3/uL Normal 0.83-4.51 [facility] Comment on above: Performed By: #### L 100.0100, L503.6005, L500.2500 ####[facility] [address] [place], [address] Absolute Neut 7.4 X10 3/uL Normal 2.0-7.7 [facility] Comment on above: Performed By: #### L 100.0100, L503.6005, L500.2500 ####[facility] [address] [place], [address] Basophils/100 WBC (Bld) 0.5 % Normal 0-1 [facility] Comment on above: Performed By: #### L 100.0100, L503.6005, L500.2500 ####[facility] [address] [place], [address] Eosinophils/100 WBC (Bld) 0.1 % Normal 0-5 [facility] Comment on above: Performed By: #### L 100.0100, L503.6005, L500.2500 ####[facility] [address] [place], [address] Erythrocyte distribution width (RBC) [Ratio] 12.7 % Normal 11.6-14.6 [facility] Comment on above: Performed By: #### L 100.0100, L503.6005, L500.2500 ####[facility] [address] [place], [address] Hematocrit (Bld) [Volume fraction] 42.5 % Normal 37-47 [facility] Comment on above: Performed By: #### L 100.0100, L503.6005, L500.2500 ####[facility] [address] [place], [address] Hemoglobin (Bld) [Mass/Vol] 14.2 g/dL Normal 12.0-15.0 [facility] Comment on above: Performed By: #### L 100.0100, L503.6005, L500.2500 ####[facility] [address] [place], [address] IG% 0.400 Normal 0.0-0.9 [facility] Comment on above: Result Comment: IG% - Immature Granulocytes (promyelocytes, myelocytes and metamyelocytes) > 1% indicates that a LEFT SHIFT is Present. Performed By: #### L 100.0100, L503.6005, L500.2500 ####[facility] [address] [place], [address] Lymphocytes/100 WBC (Bld) 13.3 % Low 19-41 [facility] Comment on above: Performed By: #### L 100.0100, L503.6005, L500.2500 ####[facility] [address] [place], [address] MCH (RBC) [Entitic mass] 30.5 pg Normal 27.0-32.0 [facility] Comment on above: Performed By: #### L 100.0100, L503.6005, L500.2500 ####[facility] [address] [place], [address] MCHC (RBC) [Mass/Vol] 33.4 g/dL Normal 32-36 [facility] Comment on above: Performed By: #### L 100.0100, L503.6005, L500.2500 ####[facility] [address] [place], [address] MCV (RBC) [Entitic vol] 91.2 fL Normal 81-99 [facility] Comment on above: Performed By: #### L 100.0100, L503.6005, L500.2500 ####[facility] [address] [place], [address] Monocytes/100 WBC (Bld) 10.1 % High 0-10 [facility] Comment on above: Performed By: #### L 100.0100, L503.6005, L500.2500 ####[facility] [address] [place], [address] Neutrophils/100 WBC (Bld) 75.6 % High 47-70 [facility] Comment on above: Performed By: #### L 100.0100, L503.6005, L500.2500 ####[facility] [address] [place], [address] Nucleated RBC (Bld) [#/Vol] 0 10*3/uL Normal 0-5 [facility] Comment on above: Performed By: #### L 100.0100, L503.6005, L500.2500 ####[facility] [address] [place], [address] Platelet mean volume (Bld) [Entitic vol] 8.9 fL Normal 6.2-12.0 [facility] Comment on above: Performed By: #### L 100.0100, L503.6005, L500.2500 ####[facility] [address] [place], [address] Platelets (Bld) [#/Vol] 321 10*3/uL Normal 150-450 [facility] Comment on above: Performed By: #### L 100.0100, L503.6005, L500.2500 ####[facility] [address] [place], [address] RBC (Bld) [#/Vol] 4.66 10*6/uL Normal 4.2-5.4 [facility] Comment on above: Performed By: #### L 100.0100, L503.6005, L500.2500 ####[facility] [address] [place], [address] RDW SD 42.5 fl Normal 35.1-43.9 [facility] Comment on above: Performed By: #### L 100.0100, L503.6005, L500.2500 ####[facility] [address] [place], [address] WBC (Bld) [#/Vol] 9.8 10*3/uL Normal 4.4-11.0 [facility] Comment on above: Performed By: #### L 100.0100, L503.6005, L500.2500 ####[facility] [address] [facility] [place], [address] CNOVon 10-02-2024 CNOV Office Visit (UCWSTR) SOFÍA GALO ([id number]) 1960 F Date Time Provider Department 10/02/24 9:15 AM SYLVIA KENDRICK [facility] During your visit today, we recorded the following information about you: Temperature Pulse Respiration Blood pressure 97.4 degrees 105/minute 18/minute 132/82 Weight 83.7 kg Sylvia Kendrick APRN.[employer] 10/02/2024 9:36 AM Signed [facility] Subjective Sofía M Juventinoirina is a 64 year old female. Patient presents with: Flu Like Symptoms: 3 day low grade fever, nausea, fatigue, dark urine - Entered by patient Urinary Frequency: Frequency, dark urine, fever, nausea and fatigue x 3 days Patient came in with complaints of urinary frequency chills abdominal discomfort in the lower abdomen. Patient also says she is a little nauseated. Says she feels very fatigued and off. Says she has been trying to increase her water intake. Denies any other symptoms. The history is provided by the patient. 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 Flu Like Symptoms Associated symptoms include abdominal pain. Review of Systems Constitutional: Negative. HENT: Negative. Gastrointestinal: Positive for abdominal pain. Genitourinary: Positive for frequency. Objective BP 132/82 Pulse 105 Temp 36.3 ?C (97.4 ?F) (Tympanic) Resp 18 Wt 83.7 kg (184 lb 8.4 oz) LMP 11/14/2010 SpO2 97% BMI 27.25 kg/m? Physical Exam Constitutional: Appearance: Normal appearance. Cardiovascular: Rate and Rhythm: Normal rate and regular rhythm. Heart sounds: Normal heart sounds. Pulmonary: Effort: Pulmonary effort is normal. Breath sounds: Normal breath sounds. Abdominal: General: Abdomen is flat. Palpations: Abdomen is soft. Tenderness: There is abdominal tenderness. There is guarding. There is no right CVA tenderness or left CVA tenderness. Neurological: Mental Status: She is alert. PAST MEDICAL HISTORY Diagnosis Date NEGATIVE MEDICAL HISTORY PAST SURGICAL HISTORY Procedure Laterality Date EXCISE DIGITAL NEUROMA Right PAST SURGICAL HISTORY OF Broken left arm,and broken right thumb ALLERGIES Patient has no known allergies. MEDICATIONS No prescriptions on file. FAMILY HISTORY Problem Relation Age of Onset Osteoporosis Mother Seizures Mother Coronary Artery Disease Father Heart Attack Heart Father Heart attack Lipids Father Asthma Sister Osteoporosis Sister other (connective tissue disorder) Sister Heart Attack Paternal Grandfather other (smoker) Paternal Grandfather Social History Tobacco Use Smoking status: Never Substance Use Topics Alcohol use: Yes Comment: occasionally Drug use: Never {ASSESSMENT/PLAN: 1. Urinary frequency - ICD9: 788.41, ICD10: R35.0 (primary diagnosis) acute - Send urine for culture - Patient education for prevention given - UA DIP, URINE (POC) - BACTERIAL CULTURE, URINE 2. Left lower quadrant abdominal pain - ICD9: 789.04, ICD10: R10.32 Patient was sent to the emergency room to be evaluated for this left lower quadrant abdominal pain. Upon exam patient was extremely tender and did come up off the table upon very light palpation. Patient is on Aleve at this time says the pain is at least a 6 out of 10. Due to possible diverticulitis she is being sent to ER to rule this out we will still send urine culture and update patient on that. No prescriptions at this time. If culture comes back positive please prescribe accordingly. Sylvia Kendrick APRN.[employer] History and Record Review External record(s) reviewed: no prior records. Disposition The patient was discharged. Procedures Allergies As of Date: 10/02/2024 (No Known Allergies) Date Reviewed: 10/02/2024 Reviewed by: Lucy Meier LPN - Fully Assessed Reason for Visit: Flu Like Symptoms [267] Cmt: 3 day low grade fever, nausea, fatigue, dark urine - Entered by patient Urinary Frequency [1086] Cmt: Frequency, dark urine, fever, nausea and fatigue x 3 days Primary Visit Diagnosis:Urinary frequency [R35.0] Other Visit Diagnosis:Left lower quadrant abdominal pain [R10.32] Order(s):UA DIP, URINE (POC) [7416129] Order #: [id number] #:[id number] BACTERIAL CULTURE, URINE [SQURCUL] Order #: [id number]. #:[id number] Problem List As Of Date 10/02/2024 Noted Resolved Irritated//Inflamed Seborrheic Keratosis [L82.0]05/25/2009 Other Seborrheic Keratosis [L82.1] 05/25/2009 Solar Lentigo [L81.4] 05/25/2009 Sun-Damaged Skin [L57.8] 05/25/2009 Encounter Status:Closed by SYLVIA KENDRICK on 10/02/24 Normal [facility] Emergency Department Summary on 10-02-2024 Emergency Department Summary [facility] Medical Records Department [address] [place] [id number] Emergency Department Summary 10/02/24 MR#: [id number] Acct: [id number] Name: SOFÍA GALO Rep #: [id number] : 1960 64 From: Benja Catherine DO PCP: ISMAEL Luna Status:ADM IN Location: [place] [id number] HPI HPI - GI History of Present Illness Chief Complaint: Abd Pain Detail of Chief Complaint: Abdominal pain Informant: patient Narrative Narrative: Patient presents the emergency department with complaint of not feeling well and abdominal pain. Patient states that 5 days ago started feeling just feverish and achy. She noticed that her urine was dark. She denies dysuria or urgency. She started drinking more water and the urine cleared up as far as color but when she went back to drinking normal amounts of water it got dark again. Today she was seen at an urgent care and noted to have pain in the lower abdomen especially left lower quadrant and was referred to the emergency department. Patient denies any diarrhea. She has had subjective fever and chills at home. Patient has no medical history. No prior abdominal surgeries. No history of diverticulitis. No family history of colon cancer or inflammatory bowel disease. [facility] Medical History (Updated 10/02/24 @ 10:[address] Benja Catherine, DO) Strain of muscle and tendon of long extensor muscle of toe at ankle and foot level, left foot, subsequent encounter Home Medications ???Medication ???Instructions ???Recorded ???Last Taken ???Type NK 10/02/24 Unknown History Allergy/AdvReac Type Severity Reaction Status Date / Time No Known Allergies Allergy Verified 10/02/24 09:39 Social History (Updated 10/02/24 @ 10:17 by Emily Rosales) household members: spouse housing: house current occupational status: unemployed Smoking Status: Never smoker alcohol intake: current details: social substance use type: does not use ROS ROS ED Review of Systems ROS Unobtainable: other Constitutional Constitutional ED: Reports lethargy; Denies chills, fever(s), sweats or weight loss Eyes Eyes: Denies blurry vision, change in vision or diplopia ENT ENT ED: Denies rhinorrhea or sore throat Cardiovascular Cardiovascular: Denies chest pain, orthopnea or racing heartbeat Respiratory/Chest Respiratory/Chest: Denies cough, dyspnea, dyspnea on exertion, orthopnea or sputum Gastrointestinal Gastrointestinal: Reports abdominal pain; Denies diarrhea, nausea or vomiting Genitourinary Genitourinary ED: Denies dysuria, hematuria or urinary frequency Musculoskeletal Musculoskeletal: Denies arthralgias, back pain, myalgias or neck pain Integumentary Denies abscess, Abrasions or rash Neurologic Neurologic: Denies headache(s) or weakness Psychiatric Psychiatric: Denies anxiety, depression or suicidal thoughts Endocrine Endocrinology: Denies polydipsia, polyphagia or polyuria Hematologic/Lymphati c Hematologic/Lymphati c: Denies easy bleeding, easy bruising or lymphadenopathy Allergic/Immunologic Allergic/Immunologic ED: Denies mouth swelling, tongue swelling or urticaria EXAM Physical Exam Const Vital Signs: 10/02/24 09:39 Temperature 98.9 F Temperature Source Oral Pulse Rate 105 H Respiratory Rate 18 Blood Pressure 176/99 H Blood Pressure Mean 124 Pulse Ox 99 Oxygen Delivery Method Room Air Positive well nourished and well developed General Appearance ED: well developed and NAD HEENT Reports TM's clear and moist mucous membranes normocephalic and atraumatic; Negative for trauma or tenderness Tympanic Membrane ED: Yes TM's clear Eyes PERRL and EOMs intact bilaterally General Eye ED: Negative for pale conjunctiva or scleral icterus Neck no lymphadenopathy, supple and no JVD General: Negative for tenderness Chest Wall inspection of chest normal and palpation of chest normal Chest: Negative for tenderness Resp normal respiratory effort and clear to auscultation bilaterally Effort and Inspection: Negative for respiratory distress or pain with movement Auscultation: Negative for rhonchi, wheezes or diminished lung sounds Cardio regular rate, regular rhythm, S1 normal heart sound, S2 normal heart sound and no murmurs Peripheral Pulses: pulses 2+ throughout GI normal to inspection, nondistended, normoactive bowel sounds, soft to palpation, non-distended and no masses GI Narrative: Normoactive bowel sounds. She has diffuse tenderness palpation over the right lower quadrant as well as suprapubic region and left lower quadrant. There are some guarding. There is no rebound, rigidity, or peritoneal signs. No masses palpated. Back/Spine no CVA tenderness and no thoracic nor lumbar tenderness Extremity normal to inspection General Extremety ED: Negative for edema (more content not included)... Normal [facility] Lactic Acidon 10-02-2024 Lactate [Moles/Vol] 1.4 mmol/L Normal 0.0-2.0 [facility] Comment on above: Order Comment: Y Performed By: #### L 100.0100, L503.6005, L500.2500 ####[facility] [id number] [place], [place], [address] Protein, Urine (Random)on Protein (U) [Mass/Vol] 9.3 mg/dL Normal 0.0-12.0 [facility] Comment on above: Performed By: #### L 400.0001, L50 ####[facility] [id number] [place], [address] UA DIP, URINE (POC)on 2024 BILIRUBIN UA (POCT) Small Abnormal Negative [facility] CLARITY UA (POCT) Clear [facility] COLOR UA (POCT) Yellow [facility] GLUCOSE UA (POCT) Negative Negative mg/dL [facility] Hemoglobin Ql (U) Negative Negative [facility] Interpretation and review of laboratory results Abnormal [facility] KETONE UA (POCT) 40 mg/dL Abnormal Negative [facility] LEUKOCYTES UA (POCT) Negative Negative [facility] NITRITE UA (POCT) Negative Negative [facility] PH UA (POCT) 5.5 4.5 - 8.0 [facility] Protein Ql (U) Trace Abnormal Negative mg/dL [facility] SPECIFIC GRAVITY UA (POCT) 1.025 1.005 - 1.030 [facility] UROBILINOGEN UA (POCT) 1 Normal E.U./dL [facility] Location:[facility] [place], [address], [place], [address] [facility] POINT OF CARE [facility] Urinalysis, Completeon 10-02 EPI,SQUAMOUS 0-5 SEEN Normal 5-10 [facility] Comment on above: Order Comment: JAMES CTOR TO SPECIFY Performed By: #### L 400.0001, ####[facility] [address] [place], [address] BACTERIA 0 SEEN Normal None Seen [facility] Comment on above: Order Comment: JAMES CTOR TO SPECIFY Performed By: #### L 400.0001, ####[facility] [address] [place], [address] Mucus Ql (Urine sed) 0 SEEN Normal [facility] Comment on above: Order Comment: JAMES CTOR TO SPECIFY Performed By: #### L 400.0001, ####[facility] [address] [place], [address] RBC 0 SEEN Normal 0-5 [facility] Comment on above: Order Comment: JAMES CTOR TO SPECIFY Performed By: #### L 400.0001, L501.1930 ####[facility] [address] [place], [address] WBC 0 SEEN Normal 0-5 [facility] Comment on above: Order Comment: JAMES CTOR TO SPECIFY Performed By: #### L 400.0001, L501.1930 ####[facility] [address] [place], [address] GENETIC SENDOUTon 04-15-2024 Genetic Test Name Site Specific Testing: FH and HOXB13 Invalid Interpretation Code [facility] Comment on above: Order Comment: 1: In surance is Directly Billed by [facility]. 2: 3-5cc of blood in EDTA (Tube in Kit) 3: Family Mutation For: FH c.301C>T, p.R101* and HOXB13 c.251G>A, p.G84E DO NOT DRAW UNLESS PATIENT HAS BEEN GIVEN KIT INCLUDING EXTERNAL REQUISITION FORMS Name of Test:->Site Specific Testing: FH and HOXB13 Billing type:->Direct What is the sendout facility name, if known?->[facility] Genetic Test Reference Lab [facility] Invalid Interpretation Code [facility] Comment on above: Order Comment: 1: In surance is Directly Billed by [facility]. 2: 3-5cc of blood in EDTA (Tube in Kit) 3: Family Mutation For: FH c.301C>T, p.R101* and HOXB13 c.251G>A, p.G84E DO NOT DRAW UNLESS PATIENT HAS BEEN GIVEN KIT INCLUDING EXTERNAL REQUISITION FORMS Name of Test:->Site Specific Testing: FH and HOXB13 Billing type:->Direct What is the sendout facility name, if known?->[facility] Miscellaneous Results Patient results scanned into EPIC Invalid Interpretation Code [facility] Comment on above: Order Comment: 1: In surance is Directly Billed by [facility]. 2: 3-5cc of blood in EDTA (Tube in Kit) 3: Family Mutation For: FH c.301C>T, p.R101* and HOXB13 c.251G>A, p.G84E DO NOT DRAW UNLESS PATIENT HAS BEEN GIVEN KIT INCLUDING EXTERNAL REQUISITION FORMS Name of Test:->Site Specific Testing: FH and HOXB13 Billing type:->Direct What is the sendout facility name, if known?->[facility] OVon 11-24-2023 CNOV Office Visit (FAMPWS) IRAJSOFÍA ([id number]) 1960 F Date Time Provider Department 11/24/23 11:40 AM TAYLA QUACH During your visit today, we recorded the following information about you: Pulse Respiration Blood pressure 77/minute 16/minute 112/80 Tayla Quach APRN.[employer] 11/24/2023 1:43 PM Signed This is a 63 year old female who presents today with: Patient presents with: Acute Visit: Poison archie around bilateral eyes HISTORY OF PRESENT ILLNESS: Sofía Ware Iraj is a 63 year old female. Patient presents with: Acute Visit: Poison archie around bilateral eyes Pt presents today with complaint of poison archie around her bilateral eyes. Also above her upper lip. Started two days ago. + itch. No trouble swallowing/SOB. Refers that she is out in the yard a lot. Usually gets around the eyes. Has taken steroids in the past. PAST MEDICAL HISTORY: PAST MEDICAL HISTORY Diagnosis Date NEGATIVE MEDICAL HISTORY PAST SURGICAL HISTORY Procedure Laterality Date EXCISE DIGITAL NEUROMA Right PAST SURGICAL HISTORY OF Broken left arm,and broken right thumb ALLERGIES Patient has no known allergies. MEDICATIONS No current outpatient medications on file. No current facility-administere d medications for this visit. FAMILY HISTORY Problem Relation Age of Onset Osteoporosis Mother Seizures Mother Coronary Artery Disease Father Heart Attack Heart Father Heart attack Lipids Father Asthma Sister Osteoporosis Sister other (connective tissue disorder) Sister Heart Attack Paternal Grandfather other (smoker) Paternal Grandfather Social History Tobacco Use Smoking status: Never Substance Use Topics Alcohol use: Yes Comment: occasionally Drug use: Never EXAM: BP 112/80 Pulse 77 Resp 16 LMP 11/14/2010 SpO2 97% PHYSICAL EXAM: General Appearance: Well appearing, alert, in no acute distress, well-hydrated, well nourished.. Skin: macular/papular rash noted around the bilateral eyes -- L>R. Also noted redness above the upper lip. Head: Normocephalic, no masses, lesions, tenderness or abnormalities. Eyes: Anicteric sclera. Extraocular movements are intact. . Lungs: Lungs clear to auscultation. No wheezing, rhonchi, rales.. Heart: RRR without murmur, gallop, or rubs. No ectopy. Neurologic: Gait normal. ASSESSMENT/PLAN: 1. Plant dermatitis - ICD9: 692.6, ICD10: L25.5 - Oral Steriod tx -Prednisone taper - discussed skin care of rash - can use hydrocortisone or calamine prn. - follow up if symptoms persist or worsen. - PREDNISONE 10 MG TABLET Discussed treatment plan and patient voices understanding. Patient's questions answered appropriately. Medications and potential side effects were discussed and patient voices understanding. Return to the office as scheduled or as needed for worsening/no improvement. Tayla Quach APRN.Tayla Leavitt APRN.CNP 11/24/2023 12:07 PM Signed Start the prednisone The prednisone taper will be 4 tablets for 3 days; 3 tablets for 3 days; 2 tablets for 3 days; then 1 tablet for 5 days. Please do no use other anti-inflammatories (like ibuprofen, aleve, naproxen, etc) while you are on this medication. 2. You can use a little hydrocortisone cream to the area. 3. Let us know if no better/worsening. Allergies As of Date: 11/24/2023 (No Known Allergies) Date Reviewed: 11/24/2023 Reviewed by: Arthur Leo LPN - Fully Assessed Reason for Visit: Acute Visit [896] Cmt: Poison archie around bilateral eyes Primary Visit Diagnosis:Plant dermatitis [L25.5] Order(s):predniSONE (DELTASONE) 10 mg tabletTake 4 tabs daily x 3 days, then 3 tabs x 3 days, 2 tabs x 3 days, then 1 tab x5 days with food.Disp: 32 tabletRfl: 0 Prescriptions as of 11/24/2023 - predniSONE (DELTASONE) 10 mg tablet Take 4 tabs daily x 3 days, then 3 tabs x 3 days, 2 tabs x 3 days, then 1 tab x5 days with food. Problem List As Of Date 11/24/2023 Noted Resolved Irritated//Inflamed Seborrheic Keratosis [L82.0]05/25/2009 Other Seborrheic Keratosis [L82.1] 05/25/2009 Solar Lentigo [L81.4] 05/25/2009 Sun-Damaged Skin [L57.8] 05/25/2009 Other instructions from your clinician: Start the prednisone The prednisone taper will be 4 tablets for 3 days; 3 tablets for 3 days; 2 tablets for 3 days; then 1 tablet for 5 days. Please do no use other anti-inflammatories (like ibuprofen, aleve, naproxen, etc) while you are on this medication. 2. You can use a little hydrocortisone cream to the area. 3. Let us know if no better/worsening. Prescriptions ordered this encounter Disp Refills Start End PREDNISONE 10 MG TABLET 32 t* 0 11/24/2023 12/06/2023 Sig: Take 4 tabs daily x 3 days, then 3 tabs x 3 days, 2 tabs x 3 days, then 1 tab x5 days with food. Level of Service: OFFICE/OUTPATIENT ESTABLISHED LOW MDM 20 MIN [12103] (more content not included)... Normal [facility] CBC W Auto Differential pane l (Bld)on 09-22-2023 Basophils (Bld) [#/Vol] 0.05 10*3/uL <0.11 k/uL [facility] Basophils/100 WBC (Bld) 1.0 % [facility] Differential cell count method Nom (Bld) Auto [facility] Eosinophils (Bld) [#/Vol] 0.03 10*3/uL <0.46 k/uL [facility] Eosinophils/100 WBC (Bld) 0.6 % [facility] Erythrocyte distribution width (RBC) [Ratio] 13.0 % 11.5 - 15.0 % [facility] Hematocrit (Bld) [Volume fraction] 45.1 % 36.0 - 46.0 % [facility] Hemoglobin (Bld) [Mass/Vol] 14.9 g/dL 11.5 - 15.5 g/dL [facility] Immature granulocytes (Bld) [#/Vol] <0.10 k/uL [facility] Immature granulocytes/100 WBC (Bld) 0.2 % [facility] Lymphocytes (Bld) [#/Vol] 1.42 10*3/uL 1.00 - 4.00 k/uL [facility] Lymphocytes/100 WBC (Bld) 28.9 % [facility] MCH (RBC) [Entitic mass] 31.0 pg 26.0 - 34.0 pg [facility] MCHC (RBC) [Mass/Vol] 33.0 g/dL 30.5 - 36.0 g/dL [facility] MCV (RBC) [Entitic vol] 94.0 fL 80.0 - 100.0 fL [facility] Monocytes (Bld) [#/Vol] 0.52 10*3/uL <0.87 k/uL [facility] Monocytes/100 WBC (Bld) 10.6 % [facility] Neutrophils (Bld) [#/Vol] 2.89 10*3/uL 1.45 - 7.50 k/uL [facility] Neutrophils/100 WBC (Bld) 58.7 % [facility] Nucleated RBC (Bld) [#/Vol] <0.01 k/uL [facility] Nucleated RBC/100 WBC (Bld) [Ratio] 0.0 /100 WBC [facility] Platelet mean volume (Bld) [Entitic vol] 9.4 fL 9.0 - 12.7 fL [facility] Platelets (Bld) [#/Vol] 334 10*3/uL 150 - 400 k/uL [facility] RBC (Bld) [#/Vol] 4.80 10*6/uL 3.90 - 5.2 0 m/uL [facility] WBC (Bld) [#/Vol] 4.92 10*3/uL 3.70 - 11. 00 k/uL [facility] EMERGENCY REPORTon 1 EMERGENCY REPORT [facility] EMERGENCY ROOM REPORT NAME ACCOUNT SEX AGE ADMIT DISCHARGE PT MED. RECORD# NUMBER DATE DATE TYPE IRAJ [id number] F 60 12/16/20 12/16/20 3 SOFÍA [id number] ROOM: ER DATE OF : 1960 DICTATING PHYSICIAN: Huang Ponce CHIEF COMPLAINT/HISTORY OF PRESENT ILLNESS: A 60-year-old female presents with concern for left calf pain. States she was playing tennis this morning and felt a pop in her left calf. States this is aching, worse with movement. Denies any numbness or tingling. PAST MEDICAL HISTORY: None. PAST SURGICAL HISTORY: Orthopedic. SOCIAL HISTORY: Denies any drugs, alcohol, tobacco use. REVIEW OF SYSTEMS: Ten systems reviewed and otherwise negative unless stated above. PHYSICAL EXAMINATION: Patient appears well and nontoxic. Vital signs within normal limits. Head: Normocephalic. Neck: Trachea midline. Lungs: Clear. Heart: S1, S2 appreciated without murmurs. Musculoskeletal: No evidence of Achilles injury. Full range of motion of the foot. Tenderness to palpation over the mid calf without overlying skin changes. Strong, palpable pulses. Neurologic: Sensation intact. Skin: Clear. Psych: Mood and affect normal. EMERGENCY DEPARTMENT COURSE AND TREATMENT: Patient appears well and nontoxic. No imaging indicated. Concern for possible tendinous versus muscular injury of the left calf. Patient will be placed in an Jamel wrap and give crutches. Patient will follow up with [facility]. DIAGNOSIS: Left calf pain. Dictated By: Huang Ponce DO 12/16/20 15:02 JOB #: [id number] Transcribed By: [email or web address] 12/16/20 15:24 Electronically signed by: Page 1 of 2 SOFÍA GALO Emergency Room Report SOFÍA GALO : 1960 E-SIGN: Huang Ponce D.O. 01/04/21 10:35 Page 2 of 2 SOFÍA GALO Emergency Room Report Normal [facility] Vital Signs Date Time Vital Sign Value Performing Clinician Iona see 10-08-2024 14:01-0400 Body mass index (BMI) [Ratio] 26.43 kg/m2 Miryam Tolbert APRN.CNP Work Phone: [facility] 10-08-2024 14:01-0400 Body weight 81.19 kg Miryam Tolbert APRN.CNP Work Phone: [facility] 10-08-2024 14:01-0400 Diastolic blood pressure 76 mm[Hg] Miryam oTlbert APRN.[employer] Work Phone: [facility] 10-08-2024 14:01-0400 Heart rate 81 /min Miryam Tolbert APRN.[employer] Work Phone: [facility] 10-08-2024 14:01-0400 Systolic blood pressure 127 mm[Hg] Miryam Tolbert APRN.[employer] Work Phone: [facility] 10-02-2024 09:16-0400 Body mass index (BMI) [Ratio] 27.25 kg/m2 Sylvia Kendrick APRN.[employer] Work Phone: [facility] 10-02-2024 09:16-0400 Body temperature 97.39 [degF] Sylvia Kendrick APRN.[employer] Work Phone: [facility] 10-02-2024 09:16-0400 Body weight 83.7 kg Sylvia Kendrick APRN.[employer] Work Phone: [facility] 10-02-2024 09:16-0400 Diastolic blood pressure 82 mm[Hg] Sylvia Kendrick APRN.[employer] Work Phone: [facility] 10-02-2024 09:16-0400 Heart rate 105 /min Sylvia Kendrick APRN.[employer] Work Phone: [facility] 10-02-2024 09:16-0400 Respiratory rate 18 /min Sylvia Kendrick APRN.[employer] Work Phone: [facility] 10-02-2024 09:16-0400 SaO2% (BldA) [Mass fraction] 97 % Sylvia Kendrick APRN.[employer] Work Phone: [facility] 10-02-2024 09:16-0400 Systolic blood pressure 132 mm[Hg] Sylvia Kendrick APRN.[employer] Work Phone: [facility] 11-24-2023 11:42-0400 Diastolic blood pressure 80 mm[Hg] Tayla Haagen PARTITION ASSEMBLY MACHINE OPERATOR.[employer] Work Phone: [facility] 11-24-2023 11:42-0400 Heart rate 77 /min Tayla Quach PARTITION ASSEMBLY MACHINE OPERATOR.[employer] Work Phone: [facility] 11-24-2023 11:42-0400 Respiratory rate 16 /min Tayla Quach PARTITION ASSEMBLY MACHINE OPERATOR.[employer] Work Phone: [facility] 11-24-2023 11:42-0400 SaO2% (BldA) [Mass fraction] 97 % Tayla Quach PARTITION ASSEMBLY MACHINE OPERATOR.[employer] Work Phone: [facility] 11-24-2023 11:42-0400 Systolic blood pressure 112 mm[Hg] Tayla Quach PARTITION ASSEMBLY MACHINE OPERATOR.[employer] Work Phone: [facility] 10-17-2023 11:14-0400 Body mass index (BMI) [Ratio] 25.55 kg/m2 Miryam Tolbert PARTITION ASSEMBLY MACHINE OPERATOR.[employer] Work Phone: [facility] 10-17-2023 11:14-0400 Body weight 78.47 kg Miryam Tolbert PARTITION ASSEMBLY MACHINE OPERATOR.[employer] Work Phone: [facility] 10-17-2023 11:14-0400 Diastolic blood pressure 77 mm[Hg] Miryam Tolbert PARTITION ASSEMBLY MACHINE OPERATOR.[employer] Work Phone: [facility] 10-17-2023 11:14-0400 Heart rate 80 /min Miryam Tolbert PARTITION ASSEMBLY MACHINE OPERATOR.[employer] Work Phone: [facility] 10-17-2023 11:14-0400 Respiratory rate 14 /min Miryam Tolbert PARTITION ASSEMBLY MACHINE OPERATOR.[employer] Work Phone: [facility] 10-17-2023 11:14-0400 Systolic blood pressure 136 mm[Hg] Miryam Tolbert PARTITION ASSEMBLY MACHINE OPERATOR.[employer] Work Phone: [facility] 09-22-2023 12:48-0400 Body height 175.3 cm Miryam Tolbert APRN.[employer] Work Phone: [facility] 09-22-2023 12:48-0400 Body weight 78.47 kg Miryam Tolbert APRN.[employer] Work Phone: [facility] 09-22-2023 12:48-0400 Diastolic blood pressure 77 mm[Hg] Miryam Tolbert APRN.[employer] Work Phone: [facility] 09-22-2023 12:48-0400 Heart rate 91 /min Miryam Tolbert APRN.[employer] Work Phone: [facility] 09-22-2023 12:48-0400 Respiratory rate 16 /min Miryam Tolbert APRN.[employer] Work Phone: [facility] 09-22-2023 12:48-0400 Systolic blood pressure 127 mm[Hg] Miryam Tolbert APRN.[employer] Work Phone: [facility] Encounters Encounter Date Encounter Type Care Provider Facility Start: 11-21-[address] [facility] Facility: [facility] Start: 10-10-2024 End: 10-10-2024 ambulatory Miryam Tolbert Facility:[facility] Start: 10-08-2024 End: 10-08-2024 ambulatory MIRYAM TOLBERT Facility:[facility] Start: 10-08-2024 End: 10-08-2024 Patient encounter procedure Miryam Tolbert APRN.[employer] Work Phone: [facility] Comment on above: Diverticulitis (Prim jhoan Dx) Start: 10-02-2024 ambulatory Miryam Tolbert Facilit y:[facility] Start: 10-02-2024 End: 10-04-2024 Evaluation and management of inpatient [facility] Facility:[facility] Start: 10-02-2024 End: 10-02-2024 Patient encounter procedure Sylvia Kendrick APRN.[employer] Work Phone: [facility] Comment on above: Urinary frequency (P rimary Dx); Left lower quadrant abdominal pain Start: 10-02-2024 End: 10-02-2024 ambulatory MIRYAM TOLBERT Facility:[facility] Start: 10-02-2024 End: 10-02-2024 Telemedicine consultation with patient Jean Marie Balderas Tyler LAI.[employer] Work Phone: [facility]medicine Comment on above: Treatment not availa ble (Primary Dx) Start: 10-02-2024 End: 10-02-2024 ambulatory MIRYAM TOLBERT Facility:[facility] Start: 08-27-2024 End: 09-27-2024 ambulatory Miryam Tolbert APRN.CNP Work Phone: [facility] Start: 05-14-2024 End: 05-14-2024 ambulatory AVA NASSAR [facility] Start: 04-15-2024 End: 04-15-2024 Subsequent hospital visit by physician Da Allen MD Work Phone: [facility] Comment on above: Family history of pr ostate cancer; Family history of congenital or genetic condition Start: 04-15-2024 End: 04-15-2024 ambulatory DA ALLEN [facility] Start: 04-15-2024 End: 04-15-2024 ambulatory SELF REFERRED [facility] Start: 11-24-2023 End: 11-24-2023 Office outpatient visit 15 minutes Tayla Quach APRN.CNP Work Phone: [facility] Comment on above: Plant dermatitis (Pr imary Dx) Start: 11-24-2023 End: 11-24-2023 ambulatory TAYLA QUACH Facility:[facility] Start: 10-17-2023 End: 10-17-2023 Patient encounter procedure Miryam Tolbert APRN.CNP Work Phone: [facility] Comment on above: Hyperlipidemia, mixe d (Primary Dx) Start: 09-25-2023 Telephone encounter Miryam gibbs APRN.CNP Work Phone: [facility] Comment on above: Results Start: 09-22-2023 End: 09-22-2023 Patient encounter procedure Miryam Tolbert APRN.CNP Work Phone: [facility] Comment on above: Family history of ab dominal aortic aneurysm (AAA) (Primary Dx); Encounter for screening mammogram for breast cancer; Screening for colon cancer; Screening for lipid disorders; Screening for diabetes mellitus; Wellness examination; Pap smear for cervical cancer screening Start: 09-22-2023 End: 09-22-2023 Patient encounter status Miryam Tolbert APRN.[employer] Work Phone: [facility] Work Phone: Start: 12-16-2020 End: 12-16-2020 Emergency department patient visit HUANG PONCE [facility] Procedures Date Procedure Procedure Detail Performing Clinician Start: 10-02-2024 Urnls dip stick/tabl et rgnt auto w/o microscopy Caro Garcia PARTITION ASSEMBLY MACHINE OPERATOR.[employer] Work Phone: Start: 09-22-2023 Lipid 1996 panel - S jaz or Plasma Miryam Tolbert PARTITION ASSEMBLY MACHINE OPERATOR.[employer] Work Phone: Plan of Treatment Date Care Activity Detail Author Start: 2035 RSV Vaccine (1 - 1-d ose 75+ series) RSV Vaccine (1 - 1-dose 75+ series) [facility] Start: 09-07-2033 Urine microalbumin profile DTaP,Tdap,Td Vaccine (4 - Td or Tdap) [facility] Start: 09-21-2028 Lipid panel Lipid Screening [facility] Start: 09-21-2026 Diabetes Screening Diabetes Screenin g [facility] Start: 09-21-2024 Covid-19 Vaccine () Covid-19 Vaccine () [facility] Comment on above: Postponed from 02/10 (Declined at this time) Start: 09-21-2024 Hepatitis C screening Hepatitis C [facility] Comment on above: Postponed from 04/04 (Declined at this time) Start: 09-21-2024 HIV screening HIV Screening [facility] Comment on above: Postponed from 04/04 (Declined at this time) Start: 05-14-2024 End: 05-14-2024 Professional / ancillary services management 05/14/2024 9:00 AM EST Telehealth [place] [address] Ava Nassar, [facility] [place] [address] FOLLOW UP Eliana Clayton Comment on above: FOLLOW UP Start: 04-18-2024 End: 07-18-2024 Lipid 1996 panel - Serum or Plasma LIPID PANEL BASIC Lab Routine Hyperlipidemia, mixed Expected: 04/18/2024, Expires: 07/18/2024 [facility] Work Phone: Comment on above: Expected: 04/18/2024 , Expires: 07/18/2024 Start: 02-11-2024 COVID-19 (2023- 5 season) COVID-19 ( season) [facility] Start: 02-11-2024 Covid-19 Vaccine ( season) Covid-19 Vaccine ( season) [facility] Start: 02-11-2024 FLU (#1) FLU (#1) [facility] Start: 02-11-2024 Influenza vaccination Influenza Vacc ine (#1) [facility] Start: 09-22-2023 End: 12-22-2023 Comprehensive metabolic 2000 panel - Serum or Plasma [facility] Work Phone: Comment on above: Expected: 09/22/2023 , Expires: 12/22/2023 Start: 09-22-2023 End: 12-22-2023 Hemoglobin A1c in Blood [facility] Work Phone: Comment on above: Expected: 09/22/2023 , Expires: 12/22/2023 Start: 09-22-2023 End: 12-22-2023 LIPID PANEL, NONFASTING [facility] Work Phone: Comment on above: Expected: 09/22/2023 , Expires: 12/22/2023 Start: 2020 RSV Vaccine (1 - 1-d ose 60+ series) RSV Vaccine (1 - 1-dose 60+ series) [facility] Start: 2010 Pneumococcal Vaccine : 50+ (1 of 1 - PCV) Pneumococcal Vaccine: 50+ (1 of 1 - PCV) [facility] Start: 2010 Shingrix Vaccine (1 of 2) Shingrix Vaccine (1 of 2) [facility] Start: 2005 Diabetes Screening Diabetes Screenin g [facility] Start: 2005 Lipid panel Lipid Screening [facility] Start: 2005 Screening for malign ant neoplasm of colon [facility] Start: 2000 Screening for malign ant neoplasm of breast Mammogram Screening [facility] Start: 1990 Screening for malign ant neoplasm of cervix HPV Testing [facility] Start: 1981 Microscopic observat ion [Identifier] in Cervix by Cyto stain Pap Smear [facility] Start: 1981 Screening for malign ant neoplasm of cervix [facility] Start: 1978 Anxiety Screening Anxiety Screening [facility] Start: 1978 Depression Screening Depression Scre ening [facility] Start: 1978 Hepatitis C screening Hepatitis C Sc reening [facility] Start: 1978 HIV screening HIV Screening [facility] Start: 1976 MenB (1 of 2 - MenB 2-Dose Series Bexsero) MenB (1 of 2 - MenB 2-Dose Series Bexsero) [facility] Start: 1973 Varicella (1 of 2 - 13+ 2-dose series) Varicella (1 of 2 - 13+ 2-dose series) [facility] Start: 1967 Tetanus Diphtheria a nd Pertussis Vaccines (1 - Tdap) Tetanus Diphtheria and Pertussis Vaccines (1 - Tdap) [facility] Start: 1961 MMR (1 of 1 - Standa rd series) MMR (1 of 1 - Standard series) [facility] Bacteria identified in Urine by Culture BACTERIAL CULTURE, URINE Microbiology Routine Urinary frequency 10/02/2024 10:03 AM EDT [facility] Work Phone: COL[facility]ARD [facility] Lab Ro utine Screening for colon cancer Ordered: 09/22/2023 [facility] Work Phone: Comment on above: Ordered: 09/22/2023 End: 09-26-2025 DBT Breast - bilateral screening VISHNU SCREENING W MARGARITA Radiology Routine Encounter for screening mammogram for breast cancer 1 Occurrences starting 08/27/2024 until 09/26/2025 [facility] Work Phone: Comment on above: 1 Occurrences starti ng 08/27/2024 until 09/26/2025 End: 04-15-2024 Genetic Sendout: Site Specific Testing: FH and [id number] [facility] Work Phone: Comment on above: 1 Occurrences starti ng 04/15/2024 until 04/15/2024 End: 10-21-2024 MG Breast Screening VISHUN SCREENING Radiology Routine Encounter for screening mammogram for breast cancer 1 Occurrences starting 09/22/2023 until 10/21/2024 [facility] Work Phone: Comment on above: 1 Occurrences starti ng 09/22/2023 until 10/21/2024 End: 10-21-2024 US Abdominal Aorta for screening US SCREENING FOR AAA Radiology Routine Family history of abdominal aortic aneurysm (AAA) 1 Occurrences starting 09/22/2023 until 10/21/2024 [facility] Work Phone: Comment on above: 1 Occurrences starti ng 09/22/2023 until 10/21/2024 [facility] c Immunizations Immunization Date Immunization Notes Care Provider Derrick bergeron 09-08-2023 tetanus toxoid, redu georgina diphtheria toxoid, and acellular pertussis vaccine, adsorbed Miryam Tolbert APRN.[facility] Work Phone: [facility] Work Phone: 05-19-2023 influenza virus vaccine, unspecified formulation Miryam Tolbert APRN.[facility] Work Phone: [facility] 09-11-2020 COVID-19 original vaccine, booster dose, monovalent (MODERNA) Miryam Tolbert APRN.[facility] Work Phone: [facility] Work Phone: 04-13-2011 influenza virus vaccine, unspecified formulation Miryam Tolbert APRN.[facility] Work Phone: [facility] Work Phone: 12-05-2010 tetanus toxoid, redu georgina diphtheria toxoid, and acellular pertussis vaccine, adsorbed Miryam Tolbert APRN.[facility] Work Phone: [facility] 03-31-2009 influenza virus vaccine, live, attenuated, for intranasal use Miryam Knoble PARTITION ASSEMBLY MACHINE OPERATOR.[facility] Work Phone: [facility] Work Phone: 03-06-2008 influenza virus vaccine, live, attenuated, for intranasal use Miryam Didi PARTITION ASSEMBLY MACHINE OPERATOR.[facility] Work Phone: [facility] Work Phone: 04-26-2007 influenza virus vaccine, unspecified formulation Miryam Didi PARTITION ASSEMBLY MACHINE OPERATOR.[facility] [facility] Work Phone: [facility] 04-17-2006 influenza virus vaccine, live, attenuated, for intranasal use Miryam Tolbert PARTITION ASSEMBLY MACHINE OPERATOR.[facility] [facility] Work Phone: [facility] 04-18-2005 influenza virus vaccine, live, attenuated, for intranasal use Miryam Didi PARTITION ASSEMBLY MACHINE OPERATOR.[facility] [facility] [facility] Work Phone: [facility] Payers Date Payer Category Payer Self-pay 2024 Unknown R/[facility] [id number] 2023 Private Health Insurance [id number] 2023 Unknown [id number] 1960 Unknown [id number] 1960 Unknown [id number] [id number] 1960 Unknown [id number] 1960 Unknown [id number] [id number] Unknown [id number] Unknown [id number] Unknown [id number] Unknown [id number] Unknown [id number] [id number] Unknown [id number] [id number] Unknown [id number] Social History Date Type Detail Facility Tobacco smoking stat [facility] Never smoked tobacco [facility] Work Phone: Start: 09-22-2023 End: 10-02-2024 Alcohol intake Current drinker of alcohol (finding) [facility] Start: 09-15-2023 End: 10-08-2024 History of Social function [facility] Start: 09-15-2023 End: 10-08-2024 [facility] [employer] [facility] Has the [employer], [employer], or water [employer] threatened to shut off services in your home in past 12Mo No [facility] Do you belong to any clubs or organizations such as evangelical groups, unions, fraternal or athletic groups, or school groups? Yes [facility] Are you now , , , , never or living with a partner? [facility] How often to you hav e a drink containing alcohol? Monthly or less [facility] How many standard dr inks containing alcohol do you have on a typical day? Patient does not drink [facility] How often do you hav e 6 or more drinks on 1 occasion? Never [facility] Do you feel stress - tense, restless, nervous, or anxious, or unable to sleep at night because your mind is troubled all the time - these days [OSQ] Not at all [facility] (I/We) worried wheth er (my/our) food would run out before (I/we) got money to buy more. Never true [facility] Start: 1960 Sex Assigned At Female [facility] Start: 06-20-2023 Gender identity Identifies as female gender (finding) [facility] Start: 06-20-2023 Sexual orientation Heterosexual (finding) [facility] Tobacco smoking stat us NHIS Tobacco smoking consumption unknown [facility] Start: 1960 Sex assigned at Not on file [facility] How many standard dr inks containing alcohol do you have on a typical day? 1 or 2 [facility] Functional Status Date Assessment Result Facility 10-08-2024 Total score [AUDIT-C] 1 10/09/19 1:45 PM EDT User, Fernando [facility] 10-08-2024 Within the last year , have you been humiliated or emotionally abused in other ways by your partner or ex-partner? No 10/08/2024 1:45 PM EDT [facility] 10-08-2024 Within the last year , have you been afraid of your partner or ex-partner? No 10/08/2024 1:45 PM EDT [facility], [facility] 10-08-2024 Within the last year , have you been raped or forced to have any kind of sexual activity by your partner or ex-partner? No 10/08/2024 1:45 PM EDT [facility] 10-08-2024 Within the last year , have you been kicked, hit, slapped, or otherwise physically hurt by your partner or ex-partner? No 10/08/2024 1:45 PM EDT User, Satisht No [facility] 10-08-2024 How often to you hav e a drink containing alcohol? Monthly or less 10/08/2024 1:45 PM EDT User, Fernando Monthly or less [facility] 10-08-[address] inks containing alcohol do you have on a typical day? 1 or 2 10/08/2024 1:45 PM EDT User, Satisht 1 or 2 [facility] 10-08-2024 How often do you hav e 6 or more drinks on 1 occasion? Never 10/08/2024 1:45 PM EDT User, Fernando Never [facility] Clinical Notes 09-22-2023 to 10-08-2024 Patient InstructionsMiryam Tolbert APRN.CNP - 10/08/2024 2:01 PM EDTSylvia Kendrick APRN.CNP - 10/02/2024 9:27 AM EDTPatient InstructionsJean Marie Scott APRN.CNP - 10/02/2024 7:57 AM EDT Note Date & Type Note Facility 10-08-2024 Instructions Miryam Tolbert APRN.CNP - 10/08/2024 2:14 PM EDT You are taking Augmentin twice a day to treat your diverticulitis. Continue with the prescribed antibiotic regimen as directed. documented in this encounter [facility] 10-08-2024 Note HNO ID: [id number] Author: MIRYAM TOLBERT APRN.[facility] Service: ? Author Type: Nurse Practitioner Type: Progress Notes Filed: 10/08/2024 14:17 Note Text: Chief Complaint Patient presents with: Hospital F/U [facility] Sofía Galo is a 64 year old female who presents here today for Above Complaints. Diverticulitis: - Admitted to [facility] on the for diverticulitis. - Initially treated with Cipro and Flagyl; switched to Augmentin BID before discharge. - Currently on Augmentin BID. - Reports feeling fine now. - Prior to admission, experienced fatigue, chills, and myalgias, initially thought to be jet lag or possible COVID-19 exposure. - Developed nausea and lower abdominal pressure, prompting a visit to [facility]. - [facility] noted elevated blood pressure and significant abdominal pain on palpation, leading to ER referral. - ER evaluation included blood work (no leukocytosis) and CT scan, revealing diverticulitis with fat stranding and intra-abdominal abscess (3.3 x 2 cm). - Initially informed by ER physician that condition was not perforated or abscessed; later informed by surgeon of abscess and perforation, with potential need for emergency surgery. - Expresses confusion and frustration about the severity of the condition given minimal symptoms. - Managed pain with Tylenol and Advil; adhered to clear liquid diet as instructed. - Denies any previous hospitalizations. Past medical history, appointments, medications, allergies reviewed. Previous Medical History PAST MEDICAL HISTORY Diagnosis Date NEGATIVE MEDICAL HISTORY Previous Surgical History PAST SURGICAL HISTORY Procedure Laterality Date EXCISE DIGITAL NEUROMA Right PAST SURGICAL HISTORY OF Broken left arm,and broken right thumb Family History FAMILY HISTORY Problem Relation Age of Onset Osteoporosis Mother Seizures Mother Coronary Artery Disease Father Heart Attack Heart Father Heart attack Lipids Father Asthma Sister Osteoporosis Sister other (connective tissue disorder) Sister Heart Attack Paternal Grandfather other (smoker) Paternal Grandfather Patient Allergies ALLERGIES No Known Allergies Current Medications No current outpatient medications on file prior to visit. No current facility-administered medications on file prior to visit. Social History Social History Tobacco Use Smoking status: Never Substance Use Topics Alcohol use: Yes Comment: occasionally Drug use: Never Review of Symptoms REVIEW OF SYSTEMS SEE HPI EXAM: BP 127/76 Pulse 81 Wt 81.2 kg (179 lb) LMP 11/14/2010 BMI 26.43 kg/m? General Appearance: Well appearing, alert, in no acute distress, well-hydrated, well nourished.. Abdomen: Normal abdominal exam, Abdomen soft, non-tender. Bowel sounds normal. No masses, organomegaly. Health Maintenance List Depression Screening Never done Anxiety Screening Never done Hepatitis C Screening Never done HIV Screening Never done Cervical Cancer Screening Never done Mammogram Screening Never done Colorectal Cancer Screening Never done Shingrix Vaccine(1 of 2) Never done Pneumococcal Vaccine: 50+(1 of 1 - PCV) Never done Influenza Vaccine(1) due on 02/11/2024 Covid-19 Vaccine( - 2023- season) due on 02/11/2024 Diabetes Screening due on 09/21/2026 Lipid Screening due on 09/21/2028 DTaP,Tdap,Td Vaccine(4 - Td or Tdap) due on 09/07/2033 RSV Vaccine(1 - 1-dose 75+ series) due on 2035 ASSESSMENT/PLAN: 1. Diverticulitis - ICD9: 562.11, ICD10: K57.92 -Continue augmentin. Follow up is symptoms recur or worsen. -Follow up with Dr. Bardales as scheduled. Scheduled for colonoscopy 6 weeks post treatment. Miryam Tolbert APRN.[facility] 10-08-2024 History of Presen t illness Narrative Chief Complaint Patient presents with: Hospital F/U HPI Sofía Galo is a 64 year old female who presents here today for Above Complaints. Diverticulitis: - Admitted to [facility] on the for diverticulitis. - Initially treated with Cipro and Flagyl; switched to Augmentin BID before discharge. - Currently on Augmentin BID. - Reports feeling fine now. - Prior to admission, experienced fatigue, chills, and myalgias, initially thought to be jet lag or possible COVID-19 exposure. - Developed nausea and lower abdominal pressure, prompting a visit to [facility]. - [facility] noted elevated blood pressure and significant abdominal pain on palpation, leading to ER referral. - ER evaluation included blood work (no leukocytosis) and CT scan, revealing diverticulitis with fat stranding and intra-abdominal abscess (3.3 x 2 cm). - Initially informed by ER physician that condition was not perforated or abscessed; later informed by surgeon of abscess and perforation, with potential need for emergency surgery. - Expresses confusion and frustration about the severity of the condition given minimal symptoms. - Managed pain with Tylenol and Advil; adhered to clear liquid diet as instructed. - Denies any previous hospitalizations. Past medical history, appointments, medications, allergies reviewed. Previous Medical History PAST MEDICAL HISTORY Diagnosis Date NEGATIVE MEDICAL HISTORY Previous Surgical History PAST SURGICAL HISTORY Procedure Laterality Date EXCISE DIGITAL NEUROMA Right PAST SURGICAL HISTORY OF Broken left arm,and broken right thumb Family History FAMILY HISTORY Problem Relation Age of Onset Osteoporosis Mother Seizures Mother Coronary Artery Disease Father Heart Attack Heart Father Heart attack Lipids Father Asthma Sister Osteoporosis Sister other (connective tissue disorder) Sister Heart Attack Paternal Grandfather other (smoker) Paternal Grandfather Patient Allergies ALLERGIES No Known Allergies Current Medications No current outpatient medications on file prior to visit. No current facility-administered medications on file prior to visit. Social History Social History Tobacco Use Smoking status: Never Substance Use Topics Alcohol use: Yes Comment: occasionally Drug use: Never Review of Symptoms REVIEW OF SYSTEMS SEE HPI EXAM: BP 127/76 Pulse 81 Wt 81.2 kg (179 lb) LMP 11/14/2010 BMI 26.43 kg/m General Appearance: Well appearing, alert, in no acute distress, well-hydrated, well nourished.. Abdomen: Normal abdominal exam, Abdomen soft, non-tender. Bowel sounds normal. No masses, organomegaly. Health Maintenance List Depression Screening Never done Anxiety Screening Never done Hepatitis C Screening Never done HIV Screening Never done Cervical Cancer Screening Never done Mammogram Screening Never done Colorectal Cancer Screening Never done Shingrix Vaccine(1 of 2) Never done Pneumococcal Vaccine: 50+(1 of 1 - PCV) Never done Influenza Vaccine(1) due on 02/11/2024 Covid-19 Vaccine(5 - season) due on 02/11/2024 Diabetes Screening due on 09/21/2026 Lipid Screening due on 09/21/2028 DTaP,Tdap,Td Vaccine(4 - Td or Tdap) due on 09/07/2033 RSV Vaccine(1 - 1-dose 75+ series) due on 2035 ASSESSMENT/PLAN: 1. Diverticulitis - ICD9: 562.11, ICD10: K57.92 -Continue augmentin. Follow up is symptoms recur or worsen. -Follow up with Dr. Bardales as scheduled. Scheduled for colonoscopy 6 weeks post treatment. Miryam Tolbert APRN.[facility] [facility] documented in this encounter [facility] 10-04-2024 Note [facility] Medical Records Department [address] [place] [address] Discharge Summary 10/04/24 0734 MR#: [id number] Acct: [id number] Name: SOFÍA GALO Rep #: [id number] : 1960 64 From: Isaura Scott MD PCP: ISMAEL Luna Status:ADM [id number] Providers Date of Admission: 10/02/24 Date of Discharge: 10/04/24 Primary Care Physician: ISMAEL Luna Reason For Visit: ACUTE PERFORATED DIVERTICULITIS W/ ABSCESS Diagnosis Discharge Diagnosis (1) Acute diverticulitis: Status: Acute Code(s): K57.92 - Diverticulitis of intestine, part unspecified, without perforation or abscess without bleeding Plan: White blood count normal at 8.8 Increase diet to transitional???if tolerates likely DC later with follow-up in 1 week Continue IV antibiotics, will DC with p.o. antibiotics No surgical intervention planned at this time Isaura Scott M.D. Pager: [phone] [facility] [address] [place] [address], Outpatient Pavilion, [address] [place] [address] Office: [phone] Medications at Discharge Home Medications amoxicillin 875 mg-potassium clavulanate 125 mg tablet 1 tab PO BID #20 tabs 10/04/24 Hospital Course Operations None Procedures None Summary of Care Provided Minutes Spent on Discharge: 15 Hospital Course: Patient presented to the ER due to abdominal pain CT abdomen pelvis did show acute diverticulitis of sigmoid colon with intra-abdominal abscess formation at 3.3 x 2 cm. Patient was initially kept n.p.o. with IV Zosyn and treated conservatively. Once pain improved patient was able to have diet advanced which she tolerated without increased pain. Patient was sent home with Augmentin 875 p.o. twice daily x 10 days. Weight / BMI Weight Weight: 180 lb 15.992 oz Body Mass Index (BMI) 26.7 ABG / Lab / Microbiology Data 10/04/24 06:30 10/04/24 06:30 Laboratory: Laboratory Results - last 24 hr 10/04/24 06:30: WBC 8.8, RBC 4.19 L, Hgb 12.9, Hct 37.4, MCV 89.3, MCH 30.8, MCHC 34.5, RDW Std Deviation 41.2, RDW Coeff of Florian 12.6, Plt Count 316, MPV 8.7, Immature Gran % (Auto) 0.300, Neut % (Auto) 77.0 H, Lymph % (Auto) 11.0 L, Coffey % (Auto) 10.6 H, Eos % (Auto) 0.5, Baso % (Auto) 0.6, Absolute Neuts (auto) 6.8, Absolute Lymphs (auto) 0.97, Nucleated RBC % 0, Sodium 136, Potassium 3.9, Chloride 101, Carbon Dioxide 22.9, Anion Gap 12, BUN 5, Creatinine 0.75, Estim Creat Clear Calc 86.80, Est GFR (MDRD) Non-Af 89, BUN/Creatinine Ratio 6.8 L, Glucose 102 H, Calcium 8.2 D/C Instructions Discharge Diet: - (Transitional diet/low fiber) DC O2, CPAP, BIPAP Needs Home O2 Discharge instructions: No Please Follow Up With: Cali Bardales MD When: Call the office [phone] for a follow-up appointment 1 week. Concerns or questions after 4:30 PM and on the weekends call [phone] Meaningful Use Info Meaningful Use Meaningful Use Diagnoses (Choose all that apply): None applicable Ischemic Stroke Statin Dosing Therapy Reference: STATIN DOSE THERAPY REFERENCE: * Patients > 75 years receive moderate or high dose statin therapy. * Patients 75 years or YOUNGER should receive HIGH intensity statin dose unless contraindicated. You will be required to document reason for non-treatment if statin daily dose does not meet guidelines. HIGH DOSE STATIN THERAPY DAILY Atorvastatin > than or = to 40 mg Rosuvastatin > than or = to 20 mg Amlodipine + Atorvastatin > than or = to 2.5/40 mg Ezetimibe + Simvastatin 10/80 mg Simvastatin 80mg Discharge Plan Admission Admit Date/Time: 10/02/24 11:32 Attending Provider: Cali Bardales Primary Care Provider: Miryam Tolbert Discharge Orders/Prescriptions Prescriptions: New amoxicillin-pot clavulanate 875-125 mg tablet 1 tab PO BID Qty: 20 0RF Referrals / Follow Up: Miryam Tolbert NP-C [Primary Care Provider] - Disposition Disposition (needs filled in before D/C Order can be placed): Home, Self Care 10/04/24 1013 Cosigner Signature (if applicable): CC: HOISTING MACHINE OPERATOR-C Miryam Tolbert; Dr. Isaura Scott MD Signed [facility] 10-02-2024 Note [facility] Medical Records Department [address] [place] [address] History Physical Exam 10/02/24 1247 MR#: [id number] Acct: [id number] Name: SOFÍA GALO Rep #: [id number] : 1960 64 From: Yelena VIRK PA-C PCP: ISMAEL Luna Status:ADM IN Location: [place] [address] HPI - General General Date of Admission: 10/02/24 Date of Service: 10/02/24 Chief Complaint: Left lower abdominal pain HPI Narrative SOFÍA GALO, is a 64 F who presents with worsening lower abdominal/left lower quadrant pain. Patient notes she returned from [place] last and felt as though she was jet lagged from traveling. She notes over the next few days she developed nausea, achiness and overall feeling like she had the flu. She notes lack of appetite, however she has been on a keto diet for the last several weeks and her appetite has changed. She denies any change in her bowel habits recently. She notes darker urine recently. She went to urgent care as she thought she may have a urinary tract infection. She notes they had palpated the left lower quadrant and noted she was very tender and recommended she come to the ED. Patient denies any previous diverticulitis episodes. She denies having a previous colonoscopy. She denies family history of colon cancer. She denies any previous abdominal surgeries. She denies any cardiac or pulmonary history. She denies taking any routine medications. CT scan of the ab/pel demonstrated acute diverticulitis within the distal sigmoid colon with intra- abdominal abscess measuring 3.3 x 2.0 cm. Adjacent fat stranding and edema. WBC 9.8, Hgb 14.2, Hct 42.5, Plt 321 PFSH Medical History (Updated 10/02/24 @ 10:[address] Benja Catherine, DO) Strain of muscle and tendon of long extensor muscle of toe at ankle and foot level, left foot, subsequent encounter Home Medications ???Medication ???Instructions ???Recorded ???Last Taken ???Type NK 10/02/24 Unknown History Allergy/AdvReac Type Severity Reaction Status Date / Time No Known Allergies Allergy Verified 10/02/24 09:39 Social History (Updated 10/02/24 @ 10:17 by Emily Rosales) household members: spouse housing: house current occupational status: unemployed Smoking Status: Never smoker alcohol intake: current details: social substance use type: does not use ROS Constitutional Constitutional: Reports systems reviewed and no addt'l complaints, except as documented Eyes Eyes: Reports systems reviewed and no addt'l complaints, except as documented ENT HEENT: Reports systems reviewed and no addt'l complaints, except as documented Cardiovascular Cardiovascular: Reports systems reviewed and no addt'l complaints, except as documented Respiratory/Chest Respiratory/Chest: Reports systems reviewed and no addt'l complaints, except as documented Gastrointestinal Gastrointestinal: Reports systems reviewed and no addt'l complaints, except as documented Genitourinary Genitourinary: Reports systems reviewed and no addt'l complaints, except as documented Musculoskeletal Musculoskeletal: Reports systems reviewed and no addt'l complaints, except as documented Integumentary Integumentary: Reports systems reviewed and no addt'l complaints, except as documented Neurologic Neurologic: Reports systems reviewed and no addt'l complaints, except as documented Psychiatric Psychiatric: Reports systems reviewed and no addt'l complaints, except as documented Endocrine Endocrinology: Reports systems reviewed and no addt'l complaints, except as documented Hematologic/Lymphatic Hematologic/Lymphatic: Reports systems reviewed and no addt'l complaints, except as documented Allergic/Immunologic Allergic/Immunologic: Reports systems reviewed and no addt'l complaints, except as documented Vital Signs Vital Signs Vital Signs: 10/02/24 09:39 10/02/24 11:08 10/02/24 12:00 Temperature 98.9 F 98.5 F 98.1 F Temperature Source Oral Oral Oral Pulse Rate 105 H 77 71 Respiratory Rate 18 14 15 Blood Pressure 176/99 H 140/89 H 139/81 H Blood Pressure Mean 124 106 100 Pulse Ox 99 99 98 Oxygen Delivery Method Room Air Room Air Room Air 10/02/24 12:16 Temperature 98.1 F Temperature Source Pulse Rate 71 Respiratory Rate 15 Blood Pressure 139/81 H Blood Pressure Mean 100 Pulse Ox 98 Oxygen Delivery Method Weight Weight: 184 lb 6.4 oz Body Mass Index (BMI) 27.2 Physical Exam Const alert, oriented x3 and no apparent distress HEENT normocephalic and head/scalp atraumatic Eyes PERRL Neck full ROM Resp normal respiratory effort and clear to auscultation bilaterally Cardio regular rate and regular rhythm GI GI Narrative: Abdomen- soft, tenderness in the left lower quadrant. Hypoacti (more content not included)... [facility] 10-02-2024 Note HNO ID: [id number] Author: SYLVIA KENDRICK APRN.[facility] [facility] Service: ? Author Type: Nurse Practitioner Type: Progress Notes Filed: 10/02/2024 09:36 Note Text: [facility] Subjective Sofía Galo is a 64 year old female. Patient presents with: Flu Like Symptoms: 3 day low grade fever, nausea, fatigue, dark urine - Entered by patient Urinary Frequency: Frequency, dark urine, fever, nausea and fatigue x 3 days Patient came in with complaints of urinary frequency chills abdominal discomfort in the lower abdomen. Patient also says she is a little nauseated. Says she feels very fatigued and off. Says she has been trying to increase her water intake. Denies any other symptoms. The history is provided by the patient. 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 Flu Like Symptoms Associated symptoms include abdominal pain. Review of Systems Constitutional: Negative. HENT: Negative. Gastrointestinal: Positive for abdominal pain. Genitourinary: Positive for frequency. Objective BP 132/82 Pulse 105 Temp 36.3 ?C (97.4 ?F) (Tympanic) Resp 18 Wt 83.7 kg (184 lb 8.4 oz) LMP 11/14/2010 SpO2 97% BMI 27.25 kg/m? Physical Exam Constitutional: Appearance: Normal appearance. Cardiovascular: Rate and Rhythm: Normal rate and regular rhythm. Heart sounds: Normal heart sounds. Pulmonary: Effort: Pulmonary effort is normal. Breath sounds: Normal breath sounds. Abdominal: General: Abdomen is flat. Palpations: Abdomen is soft. Tenderness: There is abdominal tenderness. There is guarding. There is no right CVA tenderness or left CVA tenderness. Neurological: Mental Status: She is alert. PAST MEDICAL HISTORY Diagnosis Date NEGATIVE MEDICAL HISTORY PAST SURGICAL HISTORY Procedure Laterality Date EXCISE DIGITAL NEUROMA Right PAST SURGICAL HISTORY OF Broken left arm,and broken right thumb ALLERGIES Patient has no known allergies. MEDICATIONS No prescriptions on file. FAMILY HISTORY Problem Relation Age of Onset Osteoporosis Mother Seizures Mother Coronary Artery Disease Father Heart Attack Heart Father Heart attack Lipids Father Asthma Sister Osteoporosis Sister other (connective tissue disorder) Sister Heart Attack Paternal Grandfather other (smoker) Paternal Grandfather Social History Tobacco Use Smoking status: Never Substance Use Topics Alcohol use: Yes Comment: occasionally Drug use: Never {ASSESSMENT/PLAN: 1. Urinary frequency - ICD9: 788.41, ICD10: R35.0 (primary diagnosis) acute - Send urine for culture - Patient education for prevention given - UA DIP, URINE (POC) - BACTERIAL CULTURE, URINE 2. Left lower quadrant abdominal pain - ICD9: 789.04, ICD10: R10.32 Patient was sent to the emergency room to be evaluated for this left lower quadrant abdominal pain. Upon exam patient was extremely tender and did come up off the table upon very light palpation. Patient is on Aleve at this time says the pain is at least a 6 out of 10. Due to possible diverticulitis she is being sent to ER to rule this out we will still send urine culture and update patient on that. No prescriptions at this time. If culture comes back positive please prescribe accordingly. Sylvia Kendrick APRN.[facility] [facility] [employer] [facility] History and Record Review External record(s) reviewed: no prior records. Disposition The patient was discharged. Procedures [facility] 10-02-2024 History of Presen t illness Narrative [facility] Subjective Sofía Galo is a 64 year old female. Patient presents with: Flu Like Symptoms: 3 day low grade fever, nausea, fatigue, dark urine - Entered by patient Urinary Frequency: Frequency, dark urine, fever, nausea and fatigue x 3 days Patient came in with complaints of urinary frequency chills abdominal discomfort in the lower abdomen. Patient also says she is a little nauseated. Says she feels very fatigued and off. Says she has been trying to increase her water intake. Denies any other symptoms. The history is provided by the patient. 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 Flu Like Symptoms Associated symptoms include abdominal pain. Review of Systems Constitutional: Negative. HENT: Negative. Gastrointestinal: Positive for abdominal pain. Genitourinary: Positive for frequency. Objective BP 132/82 Pulse 105 Temp 36.3 C (97.4 F) (Tympanic) Resp 18 Wt 83.7 kg (184 lb 8.4 oz) LMP 11/14/2010 SpO2 97% BMI 27.25 kg/m Physical Exam Constitutional: Appearance: Normal appearance. Cardiovascular: Rate and Rhythm: Normal rate and regular rhythm. Heart sounds: Normal heart sounds. Pulmonary: Effort: Pulmonary effort is normal. Breath sounds: Normal breath sounds. Abdominal: General: Abdomen is flat. Palpations: Abdomen is soft. Tenderness: There is abdominal tenderness. There is guarding. There is no right CVA tenderness or left CVA tenderness. Neurological: Mental Status: She is alert. PAST MEDICAL HISTORY Diagnosis Date NEGATIVE MEDICAL HISTORY PAST SURGICAL HISTORY Procedure Laterality Date EXCISE DIGITAL NEUROMA Right PAST SURGICAL HISTORY OF Broken left arm,and broken right thumb ALLERGIES Patient has no known allergies. MEDICATIONS No prescriptions on file. FAMILY HISTORY Problem Relation Age of Onset Osteoporosis Mother Seizures Mother Coronary Artery Disease Father Heart Attack Heart Father Heart attack Lipids Father Asthma Sister Osteoporosis Sister other (connective tissue disorder) Sister Heart Attack Paternal Grandfather other (smoker) Paternal Grandfather Social History Tobacco Use Smoking status: Never Substance Use Topics Alcohol use: Yes Comment: occasionally Drug use: Never {ASSESSMENT/PLAN: 1. Urinary frequency - ICD9: 788.41, ICD10: R35.0 (primary diagnosis) acute - Send urine for culture - Patient education for prevention given - UA DIP, URINE (POC) - BACTERIAL CULTURE, URINE 2. Left lower quadrant abdominal pain - ICD9: 789.04, ICD10: R10.32 Patient was sent to the emergency room to be evaluated for this left lower quadrant abdominal pain. Upon exam patient was extremely tender and did come up off the table upon very light palpation. Patient is on Aleve at this time says the pain is at least a 6 out of 10. Due to possible diverticulitis she is being sent to ER to rule this out we will still send urine culture and update patient on that. No prescriptions at this time. If culture comes back positive please prescribe accordingly. Sylvia Kendrick APRN.CNP History and Record Review External record(s) reviewed: no prior records. Disposition The patient was discharged. Procedures documented in this encounter [facility] 10-02-2024 Instructions Jean Marie Scott APRN.CNP - 10/02/2024 8:01 AM EDT Please go to Express or Urgent Care for further evaluation documented in this encounter [facility] 10-02-2024 Note HNO ID: [id number] Author: JEAN MARIE SCOTT APRN.CNP Service: ? Author Type: Nurse Practitioner Type: Progress Notes Filed: 10/02/2024 08:01 Note Text: Patient with 2-3 days hx of low grade fever, fatigue and nausea and then developed some urinary frequency and urgency along with bladder pressure. Unclear pattern but explained given constellation of S/S's, recommended she be seen in person for further evaluation. [facility] 10-02-2024 History of Presen t illness Narrative Patient with 2-3 days hx of low grade fever, fatigue and nausea and then developed some urinary frequency and urgency along with bladder pressure. Unclear pattern but explained given constellation of S/S's, recommended she be seen in person for further evaluation. documented in this encounter [facility] 08-27-2024 Note Patient Outreach (FA MPWS) SOFÍA GALO ([id number]) 1960 F Date Time Provider Department 08/27/24 MIRYAM TOLBERT During your visit today, we recorded the following information about you: Allergies As of Date: 08/27/2024 (No Known Allergies) Date Reviewed: 11/24/2023 Reviewed by: Arthur Leo LPN - Fully Assessed Visit Diagnosis:Encounter for screening mammogram for breast cancer [Z12.31] Order(s):VISHNU SCREENING W MARGARITA [[id number]] Order #: [id number] FUTURE Problem List As Of Date 08/27/2024 Noted Resolved Irritated//Inflamed Seborrheic Keratosis [L82.0]05/25/2009 Other Seborrheic Keratosis [L82.1] 05/25/2009 Solar Lentigo [L81.4] 05/25/2009 Sun-Damaged Skin [L57.8] 05/25/2009 Encounter Status:Closed by MySQL, PRODUSER on 09/27/24 [facility] 11-24-2023 Instructions Tayla Quach APRN.[facility] [facility] [employer] [facility] - 11/24/2023 12:07 PM EDT Start the prednisone The prednisone taper will be 4 tablets for 3 days; 3 tablets for 3 days; 2 tablets for 3 days; then 1 tablet for 5 days. Please do no use other anti-inflammatories (like ibuprofen, aleve, naproxen, etc) while you are on this medication. 2. You can use a little hydrocortisone cream to the area. 3. Let us know if no better/worsening. documented in this encounter [facility] 11-24-2023 Note HNO ID: [id number] Author: TAYLA QUACH APRN.[facility] Service: ? Author Type: Nurse Practitioner Type: Progress Notes Filed: 11/24/2023 13:43 Note Text: This is a 63 year old female who presents today with: Patient presents with: Acute Visit: Poison archie around bilateral eyes HISTORY OF PRESENT ILLNESS: Sofía Galo is a 63 year old female. Patient presents with: Acute Visit: Poison archie around bilateral eyes Pt presents today with complaint of poison archie around her bilateral eyes. Also above her upper lip. Started two days ago. + itch. No trouble swallowing/SOB. Refers that she is out in the yard a lot. Usually gets around the eyes. Has taken steroids in the past. PAST MEDICAL HISTORY: PAST MEDICAL HISTORY Diagnosis Date NEGATIVE MEDICAL HISTORY PAST SURGICAL HISTORY Procedure Laterality Date EXCISE DIGITAL NEUROMA Right PAST SURGICAL HISTORY OF Broken left arm,and broken right thumb ALLERGIES Patient has no known allergies. MEDICATIONS No current outpatient medications on file. No current facility-administered medications for this visit. FAMILY HISTORY Problem Relation Age of Onset Osteoporosis Mother Seizures Mother Coronary Artery Disease Father Heart Attack Heart Father Heart attack Lipids Father Asthma Sister Osteoporosis Sister other (connective tissue disorder) Sister Heart Attack Paternal Grandfather other (smoker) Paternal Grandfather Social History Tobacco Use Smoking status: Never Substance Use Topics Alcohol use: Yes Comment: occasionally Drug use: Never EXAM: BP 112/80 Pulse 77 Resp 16 LMP 11/14/2010 SpO2 97% PHYSICAL EXAM: General Appearance: Well appearing, alert, in no acute distress, well-hydrated, well nourished.. Skin: macular/papular rash noted around the bilateral eyes -- L>R. Also noted redness above the upper lip. Head: Normocephalic, no masses, lesions, tenderness or abnormalities. Eyes: Anicteric sclera. Extraocular movements are intact. . Lungs: Lungs clear to auscultation. No wheezing, rhonchi, rales.. Heart: RRR without murmur, gallop, or rubs. No ectopy. Neurologic: Gait normal. ASSESSMENT/PLAN: 1. Plant dermatitis - ICD9: 692.6, ICD10: L25.5 - Oral Steriod tx -Prednisone taper - discussed skin care of rash - can use hydrocortisone or calamine prn. - follow up if symptoms persist or worsen. - PREDNISONE 10 MG TABLET Discussed treatment plan and patient voices understanding. Patient's questions answered appropriately. Medications and potential side effects were discussed and patient voices understanding. Return to the office as scheduled or as needed for worsening/no improvement. Tayla Quach APRN.[facility] 11-24-2023 History of Presen t illness Narrative This is a 63 year old female who presents today with: Patient presents with: Acute Visit: Poison archie around bilateral eyes HISTORY OF PRESENT ILLNESS: Sofía Galo is a 63 year old female. Patient presents with: Acute Visit: Poison archie around bilateral eyes Pt presents today with complaint of poison archie around her bilateral eyes. Also above her upper lip. Started two days ago. + itch. No trouble swallowing/SOB. Refers that she is out in the yard a lot. Usually gets around the eyes. Has taken steroids in the past. PAST MEDICAL HISTORY: PAST MEDICAL HISTORY Diagnosis Date NEGATIVE MEDICAL HISTORY PAST SURGICAL HISTORY Procedure Laterality Date EXCISE DIGITAL NEUROMA Right PAST SURGICAL HISTORY OF Broken left arm,and broken right thumb ALLERGIES Patient has no known allergies. MEDICATIONS No current outpatient medications on file. No current facility-administered medications for this visit. FAMILY HISTORY Problem Relation Age of Onset Osteoporosis Mother Seizures Mother Coronary Artery Disease Father Heart Attack Heart Father Heart attack Lipids Father Asthma Sister Osteoporosis Sister other (connective tissue disorder) Sister Heart Attack Paternal Grandfather other (smoker) Paternal Grandfather Social History Tobacco Use Smoking status: Never Substance Use Topics Alcohol use: Yes Comment: occasionally Drug use: Never EXAM: BP 112/80 Pulse 77 Resp 16 LMP 11/14/2010 SpO2 97% PHYSICAL EXAM: General Appearance: Well appearing, alert, in no acute distress, well-hydrated, well nourished.. Skin: macular/papular rash noted around the bilateral eyes -- L>R. Also noted redness above the upper lip. Head: Normocephalic, no masses, lesions, tenderness or abnormalities. Eyes: Anicteric sclera. Extraocular movements are intact. . Lungs: Lungs clear to auscultation. No wheezing, rhonchi, rales.. Heart: RRR without murmur, gallop, or rubs. No ectopy. Neurologic: Gait normal. ASSESSMENT/PLAN: 1. Plant dermatitis - ICD9: 692.6, ICD10: L25.5 - Oral Steriod tx -Prednisone taper - discussed skin care of rash - can use hydrocortisone or calamine prn. - follow up if symptoms persist or worsen. - PREDNISONE 10 MG TABLET Discussed treatment plan and patient voices understanding. Patient's questions answered appropriately. Medications and potential side effects were discussed and patient voices understanding. Return to the office as scheduled or as needed for worsening/no improvement. Tayla Quach APRN.[employer] documented in this encounter [facility] 10-17-2023 History of Presen t illness Narrative Chief Complaint Patient presents with: Follow Up HPI Sofía Galo is a 63 year old female who presents here today for Above Complaints.. Patient presents to discuss labs. Patient's lipid panel shows elevated total and LDL cholesterol. Patient verbalizes she does not want to start medication and would like to make dietary changes first. Past medical history, appointments, medications, allergies reviewed. Previous Medical History PAST MEDICAL HISTORY Diagnosis Date NEGATIVE MEDICAL HISTORY Previous Surgical History PAST SURGICAL HISTORY Procedure Laterality Date EXCISE DIGITAL NEUROMA Right PAST SURGICAL HISTORY OF Broken left arm,and broken right thumb Family History FAMILY HISTORY Problem Relation Age of Onset Osteoporosis Mother Seizures Mother Coronary Artery Disease Father Heart Attack Heart Father Heart attack Lipids Father Asthma Sister Osteoporosis Sister other (connective tissue disorder) Sister Heart Attack Paternal Grandfather other (smoker) Paternal Grandfather Patient Allergies ALLERGIES No Known Allergies Current Medications Current Outpatient Medications on File Prior to Visit Medication Sig simvastatin (ZOCOR) 5 mg tablet Take 1 tablet by mouth daily at bedtime. For cholesterols No current facility-administered medications on file prior to visit. Social History Social History Tobacco Use Smoking status: Never Substance Use Topics Alcohol use: Yes Comment: occasionally Drug use: Never Review of Symptoms REVIEW OF SYSTEMS SEE HPI EXAM: BP 136/77 Pulse 80 Resp 14 Wt 78.5 kg (173 lb) LMP 11/14/2010 BMI 25.55 kg/m General Appearance: Well appearing, alert, in no acute distress, well-hydrated, well nourished. Health Maintenance List Pap Testing Never done HPV Testing Never done Mammogram Screening Never done Colorectal Cancer Screening Never done Shingrix Vaccine(1 of 2) Never done RSV Vaccine(1 - 1-dose 60+ series) Never done Hepatitis C Screening due on 09/21/2024 HIV Screening due on 09/21/2024 Covid-19 Vaccine( season) due on 09/21/2024 Diabetes Screening due on 09/21/2026 Lipid Screening due on 09/21/2028 DTaP,Tdap,Td Vaccine(4 - Td or Tdap) due on 09/07/2033 Influenza Vaccine Completed Behavioral Health Screening Completed ASSESSMENT/PLAN: 1. Hyperlipidemia, mixed - ICD9: 272.2, ICD10: E78.2 - Control undetermined, due for labs - Continue current medications - Counseled on healthy diet and regular exercise - Discussed need for and benefit of weight loss. BMI 25.55 kg/(m^2) - LIPID PANEL BASIC Miryam Tolbert APRN.CNP documented in this encounter [facility] 09-25-2023 Miscellaneous Notes Formattin g of this note might be different from the original. Pt notified and verbalized understanding. Pt wants to discuss starting a medication further with provider- appt was scheduled per pt request Cheryl Blackwood MA Please let patient know her cholesterol is very high. I would recommend starting a low dose statin medication. documented in this encounter [facility] 09-22-2023 Miscellaneous Notes Addended by: MIRYAM TOLBERT on: 09/22/2023 01:37 PM Modules accepted: Orders documented in this encounter [facility] 09-22-2023 History of Presen t illness Narrative PHQ-9 Score: 0 (Minimal Depression) RASHEED-7 Score: 0 (Minimal Anxiety) No further intervention at this time Chief Complaint Patient presents with: [facility] HPI Sofía Galo is a 63 year old female who presents here today for Above Complaints. [facility] Patient has not seen a PCP 20+ years. Past medical history, appointments, medications, allergies reviewed. Previous Medical History PAST MEDICAL HISTORY Diagnosis Date NEGATIVE MEDICAL HISTORY Previous Surgical History PAST SURGICAL HISTORY Procedure Laterality Date PAST SURGICAL HISTORY OF Broken left arm,and broken right thumb Family History FAMILY HISTORY Problem Relation Age of Onset Asthma Sister 1 yrs younger Coronary Artery Disease Father Heart Attack Heart Father Heart attack Lipids Father Osteoporosis Mother Osteoporosis Sister Seizures Mother Patient Allergies ALLERGIES No Known Allergies Current Medications No current outpatient medications on file prior to visit. No current facility-administered medications on file prior to visit. Social History Social History Tobacco Use Smoking status: Never Substance Use Topics Alcohol use: Yes Comment: occasionally Review of Symptoms REVIEW OF SYSTEMS GENERAL: No weight loss, malaise or fevers HEENT: No changes in hearing or vision, no nose bleeds or other nasal problems NECK: Negative for lumps, goiter, pain and significant neck swelling RESPIRATORY: Negative for cough, hemoptysis, wheezing, COPD, dyspnea or shortness of breath CARDIOVASCULAR: Negative for chest pain, leg swelling, hypertension, CHF or palpitations GI: No nausea, vomiting, or diarrhea : No history of dysuria, frequency or incontinence GAS BOOSTER ENGINEER: Negative for abnormal vaginal bleeding, abnormal vaginal discharge MUSCULOSKELETAL: Negative for joint pain or swelling, back pain or muscle pain SKIN: Negative for lesions, rash, and itching PSYCH: Negative for sleep disturbance, mood disorder and recent psychosocial stressors HEMATOLOGY/LYMPHOLOGY: Negative for prolonged bleeding, bruising easily or swollen nodes ENDOCRINE: Negative for cold or heat intolerance, polyuria, polydipsia and goiter NEURO: No history of headaches, syncope, paralysis, seizures or tremors EXAM: BP 127/77 Pulse 91 Resp 16 Ht 175.3 cm (5' 9) Wt 78.5 kg (173 lb) LMP 11/14/2010 BMI 25.55 kg/m General Appearance: Well appearing, alert, in no acute distress, well-hydrated, well nourished.. Skin: Skin color, texture, turgor normal, no suspicious rashes or lesions. Lungs: Lungs clear to auscultation. No wheezing, rhonchi, rales.. Heart: RRR without murmur, gallop, or rubs. No ectopy. Abdomen: Normal abdominal exam, Abdomen soft, non-tender. Bowel sounds normal. No masses, organomegaly Musculoskeletal: No joint swelling, deformity, or tenderness. Peripheral Pulses: Normal. Neurologic: Gait normal. Reflexes normal and symmetric. Sensation grossly intact.. Health Maintenance List Hepatitis C Screening Never done HIV Screening Never done Pap Testing Never done HPV Testing Never done Mammogram Screening Never done Lipid Screening Never done Diabetes Screening Never done Colorectal Cancer Screening Never done Shingrix Vaccine(1 of 2) Never done RSV Vaccine(1 - 1-dose 60+ series) Never done DTaP,Tdap,Td Vaccine(2 - Td or Tdap) due on 12/05/2020 Covid-19 Vaccine( - 2022- season) Never done Influenza Vaccine(Season Ended) due on 02/11/2024 Behavioral Health Screening Completed ASSESSMENT/PLAN: 1. Family history of abdominal aortic aneurysm (AAA) - ICD9: V17.49, ICD10: Z82.49 (primary diagnosis) - US SCREENING FOR AAA 2. Encounter for screening mammogram for breast cancer - ICD9: V76.12, ICD10: Z12.31 - Set up for mammogram, yearly mammogram recommended - Encouraged monthly BSE - Follow up for annual exam in one year. - VISHNU SCREENING 3. Screening for colon cancer - ICD9: V76.51, ICD10: Z12.11 - COLOGUARD 4. Screening for lipid disorders - ICD9: V77.91, ICD10: Z13.220 - LIPID PANEL BASIC 5. Screening for diabetes mellitus - ICD9: V77.1, ICD10: Z13.1 - HEMOGLOBIN A1C 6. Wellness examination - ICD9: V70.0, ICD10: Z00.00 - Counseled on healthy diet and regular exercise - Discussed need and benefit for weight loss. BMI 25.55 kg/(m^2) - Colorectal cancer screening recommended - agrees to Cologuard - Mammogram ordered - exam recommended once yearly - Follow up for annual exam in one year - COMPLETE BLOOD COUNT AND DIFFERENTIAL - COMPREHENSIVE METABOLIC PANEL 7. Pap smear for cervical cancer screening - ICD9: V76.2, ICD10: Z12.4 - Set up for mammogram, yearly mammogram recommended - Encouraged monthly BSE - Follow up for annual exam in one year. - CONSULT TO GYNECOLOGY Miryam Tolbert APRN.[place] documented in this encounter [facility] Evaluation note Diagnosis Family history of abdominal aortic aneurysm (AAA)- Primary Encounter for screening mammogram for breast cancer Screening for colon cancer Special screening for malignant neoplasms, colon Screening for lipid disorders Screening for diabetes mellitus Wellness examination Pap smear for cervical cancer screening Screening for malignant neoplasm of the cervix [facility] Diagnosis Hyperlipidemia, mixed- Primary Mixed hyperlipidemia [facility] Diagnosis Plant dermatitis- Primary Contact dermatitis and other eczema due to plants (except food) [facility] Diagnosis Family history of prostate cancer Family history of malignant neoplasm of prostate Family history of congenital or genetic condition Family history of congenital anomalies [facility] Encounter for screening mammogram for breast cancer [facility] Diagnosis Treatment not available- Primary Procedure not carried out for other reasons [facility] Diagnosis Urinary frequency- Primary Left lower quadrant abdominal pain [facility] Diagnosis Diverticulitis- Primary Diverticulitis of colon (without mention of hemorrhage) documented in this encounter [facility] for visit Narrative* Referral (Routine) - Pending Review Specialty Diagnoses / Procedures Referred By Eloy dave Referred To Contact Diagnoses Family history of prostate cancer Family history of congenital or genetic condition Procedures Genetic Sendout: Site Specific Testing: FH and [id number] Da Allen MD [address] [place] [address], [address] [place] [address] Phone: tel: fax: Referral ID Status Reason Start Date Expiration Date V isits Requested Visits Authorized [id number] Pending Review 04/15/2024 04/15/2025 1 1 [facility] Summary Purpose Family History No Family History Records FoundNo Family History Records FoundNo Family History Records FoundNo Family History Records Found Advance Directives No Advanced Directives Records FoundNo Advanced Directives Records FoundNo Advanced Directives Records FoundNo Advanced Directives Records Found Reason for Referral Specialty Diagnoses / Procedures Referred By Contac t Referred To Contact Gynecology Diagnoses Pap smear for cervical cancer screening Procedures CONSULT TO GYNECOLOGY OFFICE/OUTPATIENT [facility] 60 MINUTES Miryam Tolbert APRN.[employer] [address] [place] [address] Referral ID Status Reason Start Date Expiration Date Visits Requested Visits Authorized [id number] Authorized PCP Requested Referral Auto-Generate d Referral 09/22/2023 09/21/2024 1 1 Specialty Diagnoses / Procedures Referred By Contac t Referred To Contact [facility] Diagnoses Encounter for screening mammogram for breast cancer Procedures VISHNU SCREENING SCREENING MAMMOGRAPHY BI 2-VIEW BREAST INC CAD Miryam Tolbert APRN.[employer] [facility] [address] [place] [address] [facility] [address] [place] [address] Referral ID Status Reason Start Date Expiration Date Visits Requested Visits Authorized [id number] Pending Review Auto-Generat ed Referral 09/22/2023 10/21/2024 1 1 Specialty Diagnoses / Procedures Referred By Contac t Referred To Contact [facility] Diagnoses Family history of abdominal aortic aneurysm (AAA) Procedures US SCREENING FOR AAA (2017) US ABDOMINAL AORTA REAL TIME SCREEN STUDY AAA Miryam Tolbert APRN.[employer] [address] [place] [address] [place] [address] Referral ID Status Reason Start Date Expiration Date Visits Requested Visits Authorized [id number] Pending Review Auto-Generat ed Referral 09/22/2023 10/21/2024 1 1 Additional Source Comments INFORMATION SOURCE (unrecogn ized section and content) DATE CREATED AUTHOR 01/04/2021 [facility] DATE CREATED AUTHOR AUTHOR'S ORGANIZ ATION 05/15/2024 [facility] DATE CREATED AUTHOR AUTHOR'S ORGANIZ ATION 10/16/2024 [facility] DATE CREATED AUTHOR AUTHOR'S ORGANIZ ATION 11/18/2024 [facility] Source Comments (unrecognize d section and content) In the event this informatio n is protected by the Federal Confidentiality of Alcohol and Drug Abuse Patient Records regulations: The Federal rules restrict any use of the information to criminally investigate or prosecute any alcohol or drug abuse patient.[facility] event this information is protected by the Federal Confidentiality of Alcohol and Drug Abuse Patient Records regulations: The Federal rules restrict any use of the information to criminally investigate or prosecute any alcohol or drug abuse patient.[facility] event this information is protected by the Federal Confidentiality of Alcohol and Drug Abuse Patient Records regulations: The Federal rules restrict any use of the information to criminally investigate or prosecute any alcohol or drug abuse patient.[facility] event this information is protected by the Federal Confidentiality of Alcohol and Drug Abuse Patient Records regulations: The Federal rules restrict any use of the information to criminally investigate or prosecute any alcohol or drug abuse patient.[facility] the event this information is protected by the Federal Confidentiality of Alcohol and Drug Abuse Patient Records regulations: The Federal rules restrict any use of the information to criminally investigate or prosecute any alcohol or drug abuse patient.[facility] the event this information is protected by the Federal Confidentiality of Alcohol and Drug Abuse Patient Records regulations: The Federal rules restrict any use of the information to criminally investigate or prosecute any alcohol or drug abuse patient.[facility] event this information is protected by the Federal Confidentiality of Alcohol and Drug Abuse Patient Records regulations: The Federal rules restrict any use of the information to criminally investigate or prosecute any alcohol or drug abuse patient.[facility] event this information is protected by the Federal Confidentiality of Alcohol and Drug Abuse Patient Records regulations: The Federal rules restrict any use of the information to criminally investigate or prosecute any alcohol or drug abuse patient.[facility] Reason for Visit (unrecogniz ed section and content) Reason Comments Establish Care Reason Comments Results Reason Comments Follow Up Reason Comments Acute Visit Poison archie around bi lateral eyes Reason Comments UTI Reason Comments Flu Like Symptoms 3 day low grade feve r, nausea, fatigue, dark urine - Entered by patient Urinary Frequency Frequency, dark urin e, fever, nausea and fatigue x 3 days Reason Comments Hospital F/U Care Teams (unrecognized sec tion and content) Leather Whitener Relationship Specialty Start Date End Date Miryam Tolbert, MING.[employer] [address] [place] [id number] PCP - General Family Medicine 09/25/23 Leather Whitener Relationship Specialty Start Date End Date Miryam Tolbert, MING.[employer] [address] [place] [address] [phone] PCP - General Family Medicine 09/25/23 Leather Whitener Relationship Specialty Start Date End Date Miryam Tolbert, PARTITION ASSEMBLY MACHINE OPERATOR.[facility] [employer] [facility] [address] [place] [address] [phone] PCP - General Family Medicine 09/25/23 Leather Whitener Relationship Specialty Start Date End Date Pcp, [place] [address] [place] [address] PCP - General Pediatrics 04/15/24 Ava Nassar [facility] [address] [place] [id number] Genetic Counselor Genetics 04/15/24 Leather Whitener Relationship Specialty Start Date End Date Miryam Tolbert APRN.[facility] [employer] [address] [place] [address] [phone] PCP - General Family Medicine 09/25/23 Leather Whitener Relationship Specialty Start Date End Date Miryam Tolbert APRN.[employer] [address] [place] [address] [phone] PCP - General Family Medicine 09/25/23 Leather Whitener Relationship Specialty Start Date End Date Miryam Tolbert APRN.[employer] [address] [place] [address] [phone] PCP - General Family Medicine 09/25/23 Leather Whitener Relationship Specialty Start Date End Date Miryam Tolbert APRN.[employer] [address] [place] [address] [phone] PCP - General Family Medicine 09/25/23 FOR RECORDS PERTAINING TO PATIENTS WHO ARE OR HAVE BEEN ENROLLED IN A CHEMICAL DEPENDENCY/SUBSTANCEABUSE PROGRAM, SOME INFORMATION MAY BE OMITTED. This clinical summary was aggregated from multiple sources. Caution should be exercised in using it in the provision of clinical care. This summary normalizes information from multiple sources, and as a consequence, information in this document may materially change the coding, format and clinical context of patient data. In addition, data may be omitted in some cases. CLINICAL DECISIONS SHOULD BE BASED ON THE PRIMARY CLINICAL RECORDS. [employer] [facility]. provides no warranty or guarantee of the accuracy or completeness of information in this document.
--- NOTE | 2024-11-21 08:52 | HP.PCM_ITS ---
History and Physical Date of Admission: 11/21/24 Date of Service: 10/10/24 MR#: [id number] Acct: [id number] Name: TISH UNGER Rep #: [id number] : 1960 Provider: Dr. Cali Bardales MD Age/Sex: 64/F Location: [facility] Status: Signed Intake Vital Signs 10/03/2515:18 10/11/2511:42 Height 5 ft 9 in 5 ft 9 in Weight: 178 lb BMI 26.2 BP 130/75 H Blood Pressure Location Rt brachial Position Sitting Respiration 17 Pulse 87 Pulse Source Monitor Pulse Oximetry (%) 97 Oxygen Delivery Method room air Intake Visit Reasons: HOSPITAL F/U- DIVERTICULITIS Chief Complaint: hospital f/u diverticulitis, colonoscopy Is patient in pain?: No Allergies No Known Allergies Allergy (Verified 10/10/24 12:44) Medications ?Medication ?Instructions ?Recorded ?Confirmed ?Type amoxicillin 875 mg-potassium 1 tab PO BID #20 tabs 10/04/24 10/10/24 Rx clavulanate 125 mg tablet collagen peptides PO DAILY 10/10/24 History creatine monohydrate ea PO 10/10/24 10/10/24 History PFSH Medical History (Updated 10/10/24 @ 17:[address] Cali Bardales MD) Strain of muscle and tendon of long extensor muscle of toe at ankle and foot level, left foot, subsequent encounter Surgical History (Updated 10/10/24 @ 12:42 by Allison Song) Neuroma of foot Metal plates in left arm Social History (Updated 10/02/24 @ 10:17 by Emily Rosales) household members: spouse housing: house current occupational status: unemployed Smoking Status: Never smoker alcohol intake: current details: social substance use type: does not use HPI HPI HPI: Patient is a 64-year-old female who presents for follow-up of recent admission for acute diverticulitis that concluded with a hospital discharge on 10/04/2024. Today she states that she is experiencing no abdominal pain since the weekend. She also confirms that her bowel movements have remained regular. She notes some initial frequent loose stools but these have gradually returned to a soft/formed texture. She also notes that she maintained a low fiber diet until just last couple days. Lastly she reports that she has restricted her activity to walking but is eager to return to tennis. ROS General General: No weight change, appetite, fatigue, colon cancer, breast cancer or weakness HEENT HEENT: No difficulty swallowing, eye injury, eye surgery, swollen glands or hoarseness Endo Endocrine: No thyroid disease, diabetes mellitus, thyroid cancer, Hair loss, heat intolerance or cold intolerance Skin Skin: No rash or changing moles Musc Musculoskeletal: No back problems, arthritis, rheumatoid arthritis, gout or joint pain Cardio Cardiovascular: No murmur, pacemaker, heart disease, atrial fibrillation, high blood pressure, heart attack, heart stent, palpitations, shortness of breath with exertion or chest pain Psych Psychiatric: No depression, anxiety or hearing voices Resp Respiratory: No shortness of breath, No sleep apnea, No cough, No COPD, No asthma, No emphysema and No wheezing Gastro Gastrointestinal: No abdominal pain, No nausea or vomiting, No diarrhea, No constipation, No blood in stool, No acid reflux, No hemorrhoids, No ulcers, No gallbladder problem and No black,tarry stools Serafin Hematologic: No blood thinners, No blood disorders, No bleeding, No anemia and No blood clots Neuro Neurologic: No system reviewed and no additional complaints, except as documented, No as per HPI, No abnormal gait, No abnormal hearing, No abnormal movements, No abnormal speech, No behavioral changes, No burning sensations, No confusion, No convulsions, No disequilibrium, No dizziness, No localized weakness, No frequent falls, No headache(s), No lack of coordination, No loss of vision, No memory loss, No numbness, No other visual disturbances, No radicular pain, No restless legs, No sensory deficit, No syncope, No tingling, No tremor(s), No weakness and No other Exam Const General: cooperative, comfortable, no acute distress and well developed Resp Effort & Inspection: normal respiratory effort GI Other: Persistent freely reducible, nontender umbilical hernia containing fat. Nondistended, soft, reportedly nontender the left lower quadrant (but patient states there is a difference in the perception of pressure over that area) Assessment and Plan Assessment and Plan (1) Acute diverticulitis: Status: Acute Comment: Patient is a 64-year-old female who makes outpatient follow-up for recent inpatient admission occasioned by diagnosis of complicated diverticulitis. She is doing very well since hospital discharge and has just a few days remaining of her antibiotic course but has experienced resolution of her symptoms. We reviewed the general understanding of diverticular disease and its tendency for the sigmoid colon. I also reviewed expectation for follow-up colonoscopy which Mrs. Unger states that she is prepared to undertake. Details around the endoscopic investigation were also discussed?including the requirement for a split bowel prep. For the meantime patient is encouraged to begin a probiotic after she completes her prescribed Augmentin. She is free to return to activity as she pleases. Plan: Plan will be to complete colonoscopy on first mutually agreeable date once patient is at least 6 weeks out from her disease process under local MAC. Pre- procedure prep discussed and paper instructions provided. Patient is also made aware that should she will need to have a otr company truck driver with her the day of the procedure. (2) Umbilical hernia without obstruction and without gangrene: Status: Chronic Comment: Asymptomatic, chronic. Easily reduced on exam. Patient wishes to avoid repair because she does not wish to have mesh placed. I have examined the patient and the H&P has been reviewed. There are no clinical changes since date of exam. Patient confirms that she recovered well following her diverticular episode and that she is back to full activity without issue. She also confirms she completed prep for today's procedure and that her output is now clear. Her abdominal exam is benign. Consents were confirmed. Proceed to endoscopy suite for diagnostic colonoscopy.
--- NOTE | 2024-11-21 09:00 | COLBX_PTH ---
PATIENT: TISH GALO LOC: EN U#:[id number] AGE/SX: 64/F ROOM: RE11/21/[address]: Dr. Cali Bardales MD : 1960 BED: DIS: 11/21/2024 SPEC #: [id number] RECD: 11/21/24 12:54 STATUS: ANA MARÍA RERonda #: [id number] ARLENE: 11/21/24 09:[address]: Cali Bardales DEPT: SURGICAL PATHOLOGY RECD BY: Sunil Hill ENTERED: 11/21/24 14:39 SP TYPE: COLON BX OTHR DR: Miryam Tolbert, CANAL DRIVER-C Tissues: A - Cecum, NOS B - Ascending colon C - Transverse colon D - Rectum, NOS Procedures: Surgery Specimen Level IV HEADER OPERATION: Colonoscopy with polypectomy PRE-OP DIAGNOSIS: Active diverticulitis, umbilical hernia without obstruction and without gangrene TISSUE SUBMITTED: A- Cecal polyp, B- Ascending colon polyp, C- Transverse colon polyp, D- Rectal polyp MICROSCOPIC DIAGNOSIS A. Colon, cecum, polyp, biopsy: Sessile serrated lesion. B. 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 C. Colon, transverse, polyp, biopsy: Tubular adenoma. D. Rectum, polyp, biopsy: Tubular adenoma. MICROSCOPIC DESCRIPTION Slides are reviewed. GROSS DESCRIPTION Received in 4 formalin containers labeled the patient's name and date of . Designated as: A. Cecal polyp is a 1.9 x 0.7 x 0.3 cm aggregate of sparks tissue fragments. Entirely submitted in 1 cassette. B. Ascending colon polyp is a 1.0 x 0.6 x 0.2 cm aggregate of sparks tissue fragments. Entirely submitted in 1 cassette. C. Transverse colon polyp is a 0.6 x 0.4 x 0.1 cm aggregate of sparks tissue fragments. Entirely submitted in 1 cassette. D. Rectal polyp are 6 sparks tissue fragments, 0.3 cm to 0.6 cm. Entirely submitted in 1 cassette. [facility] [place] [facility] 11/21/2024 CPT:56000a4
--- NOTE | 2024-11-21 10:14 | OP.COLON_ITS ---
Patient Name: Sofía Unger Procedure Date: 11/21/2024 8:43 AM Date of : 1960 Age: 64 Procedure: Colonoscopy Indications: Follow-up of diverticulitis Providers: Cali Bardales MD Referring MD: Cali Bardales MD Medicines: See the Anesthesia note for documentation of the administered medications Patient Profile: Last Colonoscopy: none. The patient's first colonoscopy is today. Complications: No immediate complications. Estimated blood loss: Minimal. Procedure: Pre-Anesthesia Assessment: - The heart rate, respiratory rate, oxygen saturations, blood pressure, adequacy of pulmonary ventilation, and response to care were monitored throughout the procedure. After I obtained informed consent, the scope was passed under direct vision. Throughout the procedure, the patient's blood pressure, pulse, and oxygen saturations were monitored continuously. The Colonoscope was introduced through the anus and advanced to the cecum, identified by transillumination. The colonoscopy was somewhat difficult due to significant looping. Successful completion of the procedure was aided by straightening and shortening the scope to obtain bowel loop reduction. The patient tolerated the procedure well. The quality of the bowel preparation was adequate to identify polyps greater than 5 mm in size. Scope In: 9:04:39 AM Scope Withdrawal Time 0 hours 49 minutes 46 seconds Scope Out: 10:02:12 AM Total Procedure Duration Time 0 hours 57 minutes 33 seconds Findings: Skin tags were found on perianal exam. A 15 mm polyp was found in the cecum. The polyp was sessile. The polyp was removed with a hot snare. Resection and retrieval were complete. Estimated blood loss: 3 mL requiring treatment with placement of hemostatic clip(s). A 5 mm, non-bleeding polyp was found in the ascending colon. The polyp was semi-sessile. The polyp was removed with a hot snare. Resection and retrieval were complete. Estimated blood loss: none. A 5 mm polyp was found in the distal transverse colon. The polyp was semi-sessile. Biopsies were taken with a cold forceps for histology. Estimated blood loss was minimal. A 10 mm polyp was found in the rectum. The polyp was semi-pedunculated. The polyp was removed with a hot snare. Resection and retrieval were complete. Estimated blood loss: 3 mL requiring treatment with placement of hemostatic clip(s). Scattered small-mouthed diverticula were found in the sigmoid colon. No biopsies or other specimens were collected for this exam. Impression: - Perianal skin tags found on perianal exam. - One 15 mm polyp in the cecum, removed with a hot snare. Resected and retrieved. - One 5 mm, non-bleeding polyp in the ascending colon, removed with a hot snare. Resected and retrieved. - One 5 mm polyp in the distal transverse colon. Biopsied. - One 10 mm polyp in the rectum, removed with a hot snare. Resected and retrieved. - Diverticulosis in the sigmoid colon. No specimens collected. Recommendation: - Discharge patient to home (via wheelchair). - Soft diet for 2 days. - No aspirin, ibuprofen, naproxen, or other non-steroidal anti-inflammatory drugs for 2 days after biopsy. - Await pathology results. - Repeat colonoscopy date to be determined after pending pathology results are reviewed for surveillance based on pathology results. - Telephone my office for pathology results in 1 week. Procedure Code(s): --- Professional --- 29942, Colonoscopy, flexible; with removal of tumor(s), polyp(s), or other lesion(s) by snare technique 39564, 59, Colonoscopy, flexible; with biopsy, single or multiple Diagnosis Code(s): --- Professional --- D12.0, Benign neoplasm of cecum D12.2, Benign neoplasm of ascending colon D12.3, Benign neoplasm of transverse colon (hepatic flexure or splenic flexure) D12.8, Benign neoplasm of rectum K64.4, Residual hemorrhoidal skin tags K57.32, Diverticulitis of large intestine without perforation or abscess without bleeding K57.30, Diverticulosis of large intestine without perforation or abscess without bleeding CPT copyright 2021 [employer]. All rights reserved. The codes documented in this report are preliminary and upon motion study analyst review may be revised to meet current compliance requirements. Cali Bardales MD 11/21/2024 10:14:06 AM This report has been signed electronically. Number of Addenda: 0 Note Initiated On: 11/21/2024 8:43 AM
--- NOTE | 2024-11-21 10:14 | OP.CCLET_ITS ---
11/21/2024 Jose Luna Re : Colonoscopy procedure for Sofía Unger Dear Didi This procedure was performed on November. My impressions and recommendations are as follows: Impressions : - Perianal skin tags found on perianal exam. - One 15 mm polyp in the cecum, removed with a hot snare. Resected and retrieved. - One 5 mm, non-bleeding polyp in the ascending colon, removed with a hot snare. Resected and retrieved. - One 5 mm polyp in the distal transverse colon. Biopsied. - One 10 mm polyp in the rectum, removed with a hot snare. Resected and retrieved. - Diverticulosis in the sigmoid colon. No specimens collected. Recommendations : - Discharge patient to home (via wheelchair). - Soft diet for 2 days. - No aspirin, ibuprofen, naproxen, or other non-steroidal anti-inflammatory drugs for 2 days after biopsy. - Await pathology results. - Repeat colonoscopy date to be determined after pending pathology results are reviewed for surveillance based on pathology results. - Telephone my office for pathology results in 1 week. My findings are described in the full procedure note, which is enclosed. If I can be of further assistance, please feel free to contact me at Doctor phone number(s): , Work: . Sincerely, Cali Bardales MD 11/21/2024 10:14:06 AM This report has been signed electronically.
[2024-11-21 10:15] VITALS: BP 101/77; BP 139/92; PULSE 68; PULSE 77; RESP 16; RESP 18; TEMP 36.6; O2SAT 98
--- NOTE | 2024-11-21 10:15 | PCM.POST.ANE ---
Anesthesia: Postop Eval I Current Vital Signs Temperature: 97.8 F Pulse Rate: 68 Blood Pressure: 101/77 Respiratory Rate: 18 Pulse Ox: 98 Assessment Airway patent: Yes Spontaneous unlabored respirations: Yes nausea: No Vomiting: No Anesthesia Complication: No Fluid Hydration Crystalloid volume administer (ml): 650 Total IV fluid infused: 650 Progress Note Anesthesia document: Postop Eval 1 completed: No
[2024-11-21 10:20] VITALS: BP 112/64; BP 139/92; PULSE 65; RESP 16; O2SAT 97
[2024-11-21 10:25] VITALS: BP 115/71; BP 139/92; PULSE 64; RESP 16; TEMP 36.3; O2SAT 97
[2024-11-21 10:38] VITALS: BP 139/92
--- NOTE | 2024-11-21 10:59 | POSTOPAN2_ITS ---
Anesthesia Postop Eval I Sum Postop Eval Completion status Anesthesia document: Postop Eval 1 completed: No Anesthesia Postop Eval I Summary Anesthesia Postop Eval I Summary: Anesthesia Postop Eval I: Assessment Summary Airway patent Yes 11/21/24 10:15 ANESTHESIOLOGY MEDICAL DOCTOR.[email or web address] Spontaneous unlabored Yes 11/21/24 10:15 ANESTHESIOLOGY MEDICAL DOCTOR.[email or web address] respirations Mental status nausea No 11/21/24 10:15 ANESTHESIOLOGY MEDICAL DOCTOR.DMAY Vomiting No 11/21/24 10:15 ANESTHESIOLOGY MEDICAL DOCTOR.[email or web address] Anesthesia Postop Eval I: Fluid Summary Crystalloid volume administer 650 11/21/24 10:15 ANESTHESIOLOGY MEDICAL DOCTOR.DMAY (ml) Colloids volume administered ( ml) Blood Product volume administered (ml) Total IV fluid infused 650 11/21/24 10:15 ANESTHESIOLOGY MEDICAL DOCTOR.DMAY Anesthesia Postop Eval I: Summary Notes Anesthesia Complication No 11/21/24 10:15 ANESTHESIOLOGY MEDICAL DOCTOR.DMAY Anesthesia Complication Comment: Post-operative progress note Anesthesia: Postop Eval II Evaluation Mental status: Awake Pain Level: 0 nausea: No Vomiting: No
--- NOTE | 2024-11-21 10:59 | PCM.POSTANE2 ---
Anesthesia Postop Eval I Sum Postop Eval Completion status Anesthesia document: Postop Eval 1 completed: No Anesthesia Postop Eval I Summary Anesthesia Postop Eval I Summary: Anesthesia Postop Eval I: Assessment Summary Airway patent Yes 11/21/24 10:15 LINE MAINTAINER SECTION.[email or web address] Spontaneous unlabored Yes 11/21/24 10:15 LINE MAINTAINER SECTION.DMAY respirations Mental status nausea No 11/21/24 10:15 LINE MAINTAINER SECTION.DMAY Vomiting No 11/21/24 10:15 LINE MAINTAINER SECTION.DMAY Anesthesia Postop Eval I: Fluid Summary Crystalloid volume administer 650 11/21/24 10:15 LINE MAINTAINER SECTION.DMAY (ml) Colloids volume administered ( ml) Blood Product volume administered (ml) Total IV fluid infused 650 11/21/24 10:15 LINE MAINTAINER SECTION.DMAY Anesthesia Postop Eval I: Summary Notes Anesthesia Complication No 11/21/24 10:15 LINE MAINTAINER SECTION.DMAY Anesthesia Complication Comment: Post-operative progress note Anesthesia: Postop Eval II Evaluation Mental status: Awake Pain Level: 0 nausea: No Vomiting: No
== END 2024-11-21 10:55 | disposition home or self-care (01) ==
LOC: EN 08:08 → AC 08:09
PROVIDERS: PCP Nurse Practitioner Family; Referring Provider Surgery; Visit Provider Surgery
PROC: 0DJD8ZZ Inspection of Lower Intestinal Tract, Via Natural or Artificial Opening Endoscopic (ICD-10-PCS; CPT 45378; principal; 2024-11-21 08:55)
DX: K57.32 Diverticulitis of large intestine without perforation or abscess without bleeding (principal); K64.4 Residual hemorrhoidal skin tags; K42.0 Umbilical hernia with obstruction, without gangrene; D12.8 Benign neoplasm of rectum; D12.3 Benign neoplasm of transverse colon; D12.2 Benign neoplasm of ascending colon; D12.0 Benign neoplasm of cecum
CPT/HCPCS: 45380; 45385; 88305